=== PATIENT | female | born 1935 | race Caucasian/White ===

== ENCOUNTER 2017-01-15 15:38 | Emergency (ER) | payer OTHER ==
[~2017-01-15] VITALS: Ht 172.7 cm; Wt 85.4 kg
[~2017-01-15 15:38] MED LIST: ASPCH81X PO; CHOL1CAP74 PO; METO50TA16 PO; MULT-663 PO; NTRGSL/4 UT; OFLO0.3S OPR; PANT40TA PO; RIVA1TAB4 PO; ZOLE5INJ IV
[2017-01-15 15:41] VITALS: TEMP 36.6; Ht 172.7 cm; Wt 85.4 kg
[2017-01-15] MEDS ORDERED: SODIUM CHLORIDE 0.9% 1000ML 1,000 ML IV SCH (15:56)
--- NOTE | 2017-01-15 15:58 | EMERGENCY ROOM VISIT NOTE ---
History Report prepared by Karolina: Mor Fung Under the Supervision of: Jazmine BasilioO. First contact with patient: 15:51 Chief Complaint: HEADACHE Stated Complaint: HEADACHE- RT SIDE, SLIGHTLY DISORIENTED History of Present Illness The patient is a 81 year old female who presents to the Emergency Room with complaints of an episode of a headache occurring earlier today. She locates the headache on her right sided, and notes it lasted for 10 minutes. She does not currently have the headache. The patient reports having a history of ocular migraines, but has not had one for about 10 years. She notes having some mild nausea, and is seeing "fuzzy stuff", but denies any vomiting. She indicates that she is bothered by the light. The patient adds that she had some neck stiffness earlier but it has mostly resolved. She had cataract surgery about 2 years ago. The patient is on Xarelto from an injection acquired during a past hip surgery 4 years ago. She has had 3 hip surgeries. Source of History: patient Onset: earlier today Position: head Symptom Intensity: episode lasting 10 minutes Quality: ache Timing: other (episode) Modifying Factors (Worsening): other (light) Associated Symptoms: + nausea, + neck pain (stiffness, mostly resolved), No vomiting Review of Systems See HPI for pertinent positives & negatives. A total of 10 systems reviewed and were otherwise negative. Past Medical & Surgical Medical Problems: (1) A-fib (2) Arthritis (3) blood clots (4) Bronchitis (5) Esophageal spasm (6) Hip surgery (7) Hypertension (8) Spastic colon (9) Staph infection (10) Stomach problems (11) Ulcer (12) Urinary problem Surgical Problems: (1) History of appendectomy (2) History of cholecystectomy (3) History of colon resection (4) History of total ankle replacement Family History Diabetes mellitus FHx: gallbladder disease FHx: heart disease Hypertension Social History Smoking Status: Never Smoker Alcohol Use: none Marital Status: Housing Status: lives with significant other Current/Historical Medications Scheduled Cephalexin Monohydrate (Keflex), 500 MG PO QID Cholecalciferol (Vitamin D3 Maximum Streng), 5,000 UNITS PO WK Metoprolol Tartrate (Lopressor) (Lopressor), 25 MG PO BID Multiple Minerals W/ Vitamins (Citracal Plus), 1 TAB PO BID Nitroglycerin (Nitrostat), 0.4 MG UT PRN Pantoprazole (Protonix), 40 MG PO QAM Polyethylene Glycol-Propylene (Systane), 1 DROPS OP QID Rivaroxaban (Xarelto), 20 MG PO DAILY Sertraline (Zoloft), 50 MG PO QAM Zoledronic Acid (Reclast), 1 DOSE IV YEARLY Allergies Coded Allergies: Morphine (Verified Allergy, Unknown, ANAPHYLAXIS, 01/15/17) Penicillins (Verified Allergy, Unknown, RASH, 01/15/17) Physical Exam Vital Signs Date Time Temp Pulse Resp B/P Pulse Ox O2 Delivery O2 Flow Rate FiO2 01/15/17 19:17 50 18 128/70 98 Room Air 01/15/17 18:32 54 18 109/61 97 Room Air 01/15/17 16:32 52 18 127/73 99 Room Air 01/15/17 16:14 56 01/15/17 16:05 97 Room Air 01/15/17 15:41 36.6 64 18 155/77 95 Room Air Physical Exam GENERAL: Patient is awake alert, non-anxious appearing and comfortable. EYES: The conjunctivae are clear. The pupils are round and reactive. EARS, NOSE, MOUTH AND THROAT: The nose is without any evidence of any deformity. Mucous membranes are moist tongue is midline NECK: The neck is nontender and supple. RESPIRATORY: Normal respiratory effort is noted there is no evidence of wheezing rhonchi or rales CARDIOVASCULAR: Regular rate and rhythm noted there no murmurs rubs or gallops normal S1 normal S2 GASTROINTESTINAL: The abdomen is soft. Bowel sounds are present in all quadrants. Abdomen is nontender MUSCULOSKELETAL/EXTREMITIES: There is no evidence of gross deformity full range of motion is noted in the hips and shoulders SKIN: Trace pedal edema bilaterally. NEUROLOGIC: Patient is awake alert and oriented x3, strength is symmetric, no drift appreciated, no facial droop noted. Medical Decision & Procedures ER Provider Diagnostic Interpretation: Radiology results as stated below per my review and radiologist interpretation: HEAD CT NONCONTRAST Findings: The paranasal sinuses and mastoid air cells are clear. The calvarium and skull base are intact. The ventricles and sulci are within normal limits. There is no mass, hematoma, midline shift, or acute infarct. Mild chronic small vessel change of aging Impression: No acute intracranial abnormality. Mild chronic small vessel change Electronically signed by: Fredo Sharp M.D. 01/15/2017 4:52 PM Dictated Date/Time: 01/15/2017 4:51 PM CHEST ONE VIEW PORTABLE FINDINGS: The bones soft tissues and hemidiaphragms are normal. The cardiomediastinal silhouette is normal. The lungs are clear. The pulmonary vasculature is normal. IMPRESSION: Negative chest. Electronically signed by: Fredo Sharp M.D. 01/15/2017 4:21 PM Dictated Date/Time: 01/15/2017 4:20 PM Laboratory Results 01/15/17 16:05 Red Blood Count 4.18, Mean Corpuscular Volume 88.3, Mean Corpuscular Hemoglobin 29.2, Mean Corpuscular Hemoglobin Concent 33.1, Mean Platelet Volume 10.4, Neutrophils (%) (Auto) 51.1, Lymphocytes (%) (Auto) 32.8, Monocytes (%) (Auto) 9.5, Eosinophils (%) (Auto) 5.9, Basophils (%) (Auto) 0.5, Neutrophils # (Auto) 3.30, Lymphocytes # (Auto) 2.11, Monocytes # (Auto) 0.61, Eosinophils # (Auto) 0.38, Basophils # (Auto) 0.03 01/15/17 16:05 Test 01/15/17 16:03 01/15/17 16:05 01/15/17 17:10 Bedside Glucose 97 mg/dl (70-90) White Blood Count 6.44 K/uL (4.8-10.8) Red Blood Count 4.18 M/uL (4.2-5.4) Hemoglobin 12.2 g/dL (12.0-16.0) Hematocrit 36.9 % (37-47) Mean Corpuscular Volume 88.3 fL (80-100) Mean Corpuscular Hemoglobin 29.2 pg (25-34) Mean Corpuscular Hemoglobin Concent 33.1 g/dl (32-36) Platelet Count 246 K/uL (130-400) Mean Platelet Volume 10.4 fL (7.4-10.4) Neutrophils (%) (Auto) 51.1 % Lymphocytes (%) (Auto) 32.8 % Monocytes (%) (Auto) 9.5 % Eosinophils (%) (Auto) 5.9 % Basophils (%) (Auto) 0.5 % Neutrophils # (Auto) 3.30 K/uL (1.4-6.5) Lymphocytes # (Auto) 2.11 K/uL (1.2-3.4) Monocytes # (Auto) 0.61 K/uL (0.11-0.59) Eosinophils # (Auto) 0.38 K/uL (0-0.5) Basophils # (Auto) 0.03 K/uL (0-0.2) RDW Standard Deviation 46.9 fL (36.4-46.3) RDW Coefficient of Variation 14.5 % (11.5-14.5) Immature Granulocyte % (Auto) 0.2 % Immature Granulocyte # (Auto) 0.01 K/uL (0.00-0.02) Prothrombin Time 11.1 SECONDS (9.0-12.0) Prothromb Time International Ratio 1.0 (0.9-1.1) Activated Partial Thromboplast Time 31.0 SECONDS (21.0-31.0) Partial Thromboplastin Ratio 1.2 Anion Gap 8.0 mmol/L (3-11) Est Creatinine Clear Calc Drug Dose 52.6 ml/min Estimated GFR () 64.3 Estimated GFR (Non- 55.5 BUN/Creatinine Ratio 19.7 (10-20) Calcium Level 9.3 mg/dl (8.5-10.1) Total Bilirubin 0.2 mg/dl (0.2-1) Direct Bilirubin < 0.1 mg/dl (0-0.2) Aspartate Amino Transf (AST/SGOT) 35 U/L (15-37) Alanine Aminotransferase (ALT/SGPT) 30 U/L (12-78) Alkaline Phosphatase 89 U/L (45-117) Total Creatine Kinase 75 U/L (26-192) Creatine Kinase MB 0.8 ng/ml (0.5-3.6) Creatine Kinase MB Ratio 1.1 (0-3.0) Troponin I < 0.015 ng/ml (0-0.045) Total Protein 7.3 gm/dl (6.4-8.2) Albumin 3.5 gm/dl (3.4-5.0) Urine Color YELLOW Urine Appearance CLEAR (CLEAR) Urine pH 5.5 (4.5-7.5) Urine Specific Yale 1.020 (1.000-1.030) Urine Protein NEG (NEG) Urine Glucose (UA) NEG (NEG) Urine Ketones NEG (NEG) Urine Occult Blood NEG (NEG) Urine Nitrite NEG (NEG) Urine Bilirubin NEG (NEG) Urine Urobilinogen NEG (NEG) Urine Leukocyte Esterase MODERATE (NEG) Urine RBC 0-4 /hpf (0-4) Urine WBC >30 /hpf (0-5) Urine Epithelial Cells >30 /lpf (0-5) Urine Bacteria 1+ (NEG) Laboratory results per my review. Medications Administered Medications (Trade) Dose Ordered Sig/Vahid Route Start Time Stop Time Status Last Admin Dose Admin Sodium Chloride (Nss 1000ml) 1,000 ml @ 50 mls/hr Q20H IV 01/15/17 15:56 01/15/17 19:47 DC 01/15/17 16:31 50 MLS/HR Ceftriaxone Sodium (Rocephin Inj) 1 gm NOW STAT IV 01/15/17 18:21 01/15/17 18:22 DC 01/15/17 18:30 1 GM ECG Indication: other (headache) Rate (beats per minute): 59 Rhythm: sinus bradycardia Findings: no ectopy, other (no ST segment abnormalities) Comparison ECG Date: April 13, 2014 Change: no significant change ED Course 1550: The patient was evaluated in room B7. A complete history and physical examination were performed. 1556: Ordered NSS 1,000 ml @ 50 mls/hr IV. 1821: Ordered Rocephin Inj 1 gm IV. 1850: Upon reevaluation, the patient is doing well. I discussed the results and treatment plan with the patient. She verbalized agreement of the treatment plan. The patient was discharged home. Medical Decision Differential diagnosis: Etiologies such as migraine headache, meningitis, sinusitis, CO exposure, ICH, SAH, infection, tumor, headache, sinus thrombosis, arterial dissection, as well as others were entertained. Nursing notes reviewed. The patient is an 81-year-old female who presented to the emergency department for an evaluation of headache. The patient had a left-sided headache which was not present when she presented to the emergency department. She was treated with IV fluids in the emergency department. She presented to the emergency department specifically because she was afraid that she had a stroke. I discussed the patient's laboratory and radiographic studies with her. She was reevaluated multiple times. She was also found have possible signs of urinary tract infection on urinalysis. She was treated with antibiotics for this. She was encouraged to rest and avoid any strenuous activity. She was also given TIA precautions and encouraged to return to the emergency apartment immediately if any signs of stroke develop. The patient presented to the emergency department with her significant other who states that she is currently at her baseline and did not appear confused and her speech appears baseline as well. The patient was encouraged to follow-up with her primary care physician for further evaluation. Impression Primary Impression: Headache Additional Impression: Urinary tract infection Scribe Attestation The scribe's documentation has been prepared under my direction and personally reviewed by me in its entirety. I confirm that the note above accurately reflects all work, treatment, procedures, and medical decision making performed by me. Departure Information Dispostion Home / Self-Care Prescriptions Cephalexin Monohydrate (KEFLEX) 500 Mg Cap 500 MG PO QID, #28 CAP Prov: Zurdo Bernard, DO 01/15/17 Referrals Rina Jacobson M.D. (PCP) Patient Instructions Headache Pain, My [facility] Additional Instructions Continue using Tylenol as directed for pain. Call your family tomorrow to schedule a follow-up appointment. Return to the emergency department immediately if symptoms change worsen or the need arises. Problem Qualifiers Primary Impression: Headache Headache type: unspecified Headache chronicity pattern: acute headache Intractability: not intractable Qualified Codes: R51 - Headache Additional Impression: Urinary tract infection Urinary tract infection type: acute cystitis Hematuria presence: without hematuria Qualified Codes: N30.00 - Acute cystitis without hematuria
[2017-01-15 16:05] VITALS: O2SAT 97
[2017-01-15] MEDS ORDERED: POLYSOL4 OP (16:07)
[2017-01-15] MEDS ORDERED: SERT50TA PO (16:07)
--- NOTE | 2017-01-15 16:22 | DIAGNOSTIC IMAGING REPORT ---
CHEST ONE VIEW PORTABLE CLINICAL HISTORY: Stroke mental status change COMPARISON STUDY: 01/15/2014 FINDINGS: The bones soft tissues and hemidiaphragms are normal. The cardiomediastinal silhouette is normal. The lungs are clear. The pulmonary vasculature is normal. IMPRESSION: Negative chest. Electronically signed by: Fredo Sharp M.D. 01/15/2017 4:21 PM Dictated Date/Time: 01/15/2017 4:20 PM
[2017-01-15 16:24] LABS: BASO % 0.5 %; BASO ABS # 0.03 K/uL (0-0.2); COMPLETE YES; EOS % 5.9 %; HEMATOCRIT 36.9 % (37-47); IG% 0.2 %; LYMPH % 32.8 %; LYMPH ABS # 2.11 K/uL (1.2-3.4); MEAN CELL VOLUME 88.3 fL (80-100); MEAN CORPUSCULAR HEMOGLOBIN 29.2 pg (25-34); MEAN CORPUSCULAR HGB CONC 33.1 g/dl (32-36); MEAN PLATELET VOLUME 10.4 fL (7.4-10.4); MONO % 9.5 %; NEUT % 51.1 %; PLATELET COUNT 246 K/uL (130-400); RED BLOOD COUNT 4.18 M/uL (4.2-5.4); WHITE BLOOD COUNT 6.44 K/uL (4.8-10.8)
[2017-01-15 16:32] LABS: PARTIAL THROMBOPLASTIN RATIO 1.2; PROTHROMBIN TIME (PATIENT) 11.1 SECONDS (9.0-12.0)
[2017-01-15 16:48] LABS: ALT/SGPT 30 U/L (12-78); BLOOD UREA NITROGEN 19 mg/dl (7-18); BUN/CREATININE RATIO 19.7 (10-20); CALCIUM 9.3 mg/dl (8.5-10.1); CARBON DIOXIDE 25 mmol/L (21-32); CHLORIDE 107 mmol/L (98-107); CREATININE 0.96 mg/dl (0.60-1.20); GLUCOSE 104 mg/dl (70-99); POTASSIUM 3.9 mmol/L (3.5-5.1); SODIUM 140 mmol/L (136-145)
[2017-01-15 16:53] LABS: ALKALINE PHOSPHATASE 89 U/L (45-117); AST/SGOT 35 U/L (15-37); CKMB/CK RATIO 1.1 (0-3.0)
--- NOTE | 2017-01-15 16:53 | DIAGNOSTIC IMAGING REPORT ---
HEAD CT NONCONTRAST CT DOSE: 679.75 mGycm HISTORY: Mental status change Stroke TECHNIQUE: Multiaxial CT images of the head were performed without the use of intravenous contrast. Comparison: None. Findings: The paranasal sinuses and mastoid air cells are clear. The calvarium and skull base are intact. The ventricles and sulci are within normal limits. There is no mass, hematoma, midline shift, or acute infarct. Mild chronic small vessel change of aging Impression: No acute intracranial abnormality. Mild chronic small vessel change Electronically signed by: Fredo Sharp M.D. 01/15/2017 4:52 PM Dictated Date/Time: 01/15/2017 4:51 PM
[2017-01-15 17:30] LABS: URINE APPEARANCE CLEAR (CLEAR); URINE BILIRUBIN NEG (NEG); URINE COLOR YELLOW; URINE NITRITE NEG (NEG); URINE PH 5.5 (4.5-7.5); UROBILINOGEN NEG (NEG)
[2017-01-15 17:31] LABS: MANUAL MICROSCOPIC REQUIRED? YES; REVIEW REQ? NO
[2017-01-15 17:46] LABS: URINE BACTERIA 1+ (NEG); URINE RBC 0-4 /hpf (0-4); URINE WBC >30 /hpf (0-5)
[2017-01-15] MEDS ORDERED: CEFTRIAXONE SOD INJ 1 GM ADDVIAL IV STA (18:21)
[2017-01-15] MEDS ORDERED: CEPH500C2 PO (18:49)
[2017-01-15 19:17] VITALS: BP 128/70; PULSE 50; O2SAT 98
== END 2017-01-15 19:19 | disposition home or self-care (01) ==
LOC: C.EDB 15:39
DX: R51 Headache (principal); N30.00 Acute cystitis without hematuria; I48.91 Unspecified atrial fibrillation; M19.90 Unspecified osteoarthritis, unspecified site; I10 Essential (primary) hypertension; Z83.3 Family history of diabetes mellitus; Z82.49 Family history of ischemic heart disease and other diseases of the circulatory system; Z79.899 Other long term (current) drug therapy

== ENCOUNTER → 2017-03-28 | Outpatient (CLI) | payer OTHER ==
[~2017-03-28] MED LIST changes: -ASPCH81X PO; +CEPH500C2 PO; -OFLO0.3S OPR; +POLYSOL4 OP; +SERT50TA PO
[2017-03-28 09:50] LABS: BLOOD UREA NITROGEN 15 mg/dl (7-18); BUN/CREATININE RATIO 15.5 (10-20); CARBON DIOXIDE 25 mmol/L (21-32); CHLORIDE 110 mmol/L (98-107); CREATININE 0.99 mg/dl (0.60-1.20); GLUCOSE 85 mg/dl (70-99); SODIUM 142 mmol/L (136-145)
[2017-03-28 09:55] LABS: CALCIUM 9.5 mg/dl (8.5-10.1)
[2017-04-03 16:28] LABS: QUANTIF TB AG-NIL <0.00 IU/ML; QUANTIFERON NIL 0.13 IU/ML
== END | disposition home or self-care (01) ==
LOC: C.LAB 08:30
PROVIDERS: ATTEND Physician Assistant
DX: J84.10 Pulmonary fibrosis, unspecified (principal)

== ENCOUNTER → 2017-04-02 | Outpatient (CLI) | payer OTHER ==
[~2017-04-02] MED LIST changes: +OPTIRAY 320 IV PRN
--- NOTE | 2017-04-02 10:28 | DIAGNOSTIC IMAGING REPORT ---
CHEST CT WITH CONTRAST CT DOSE: 412.62 mGy.cm HISTORY: Dyspnea J84.10 Calcified granuloma of lung scheduled at [facility] [place] on 04/02/17 a TECHNIQUE: Multiaxial CT images of the chest were performed following the intravenous administration of contrast. COMPARISON: 01/05/2016 FINDINGS: Minimal apical parenchymal scarring. The lungs are considered clear. No evidence for noncalcified nodular pathology. Linear parenchymal scarring medial right base. No significant mediastinal or hilar adenopathy of significance. Several very small calcified granulomas unchanged. Mild fatty infiltration of liver. Prior cholecystectomy. IMPRESSION: No acute process of the chest. No change from the prior study. Electronically signed by: Fredo Sharp M.D. 04/02/2017 10:27 AM Dictated Date/Time: 04/02/2017 10:24 AM
== END | disposition home or self-care (01) ==
LOC: C.CTS 10:00
PROVIDERS: ATTEND Physician Assistant
DX: J84.10 Pulmonary fibrosis, unspecified (principal)

== ENCOUNTER → 2017-10-22 | Outpatient (CLI) | payer OTHER ==
[~2017-10-22] MED LIST changes: -CEPH500C2 PO; -OPTIRAY 320 IV PRN
--- NOTE | 2017-10-22 14:43 | DIAGNOSTIC IMAGING REPORT ---
R FEMUR 2 VIEWS ROUTINE CLINICAL HISTORY: M79.606 Leg [id number] pain COMPARISON: None. DISCUSSION: Total right hip arthroplasty. Longstem femoral prosthetic. Good contact between prosthetic and underlying bone. No evidence for acetabular protrusion. Subtle lucency about the inferior margin of the metallic femoral prosthetic. This is insufficient to indicate loosening. Slight cortical thickening medially lateral to the inferior tip of the prosthetic most likely on basis of which stress-related phenomenon. IMPRESSION: No acute process. The above report was generated using voice recognition software. It may contain grammatical, syntax or spelling errors. Electronically signed by: Fredo Sharp M.D. 10/22/2017 2:41 PM Dictated Date/Time: 10/22/2017 2:40 PM
--- NOTE | 2017-10-22 14:50 | DIAGNOSTIC IMAGING REPORT ---
RIGHT HIP 2 VIEWS HISTORY: Right leg pain. COMPARISON: None. FINDINGS: There is a right total hip arthroplasty. The hardware appears intact. No fracture or dislocation. No significant periprosthetic lucency. Soft tissues are unremarkable. IMPRESSION: 1. No fracture or dislocation within the right hip. 2. Right total arthroplasty. No evidence for hardware complication. Electronically signed by: Deniz Guillaume M.D. 10/22/2017 2:49 PM Dictated Date/Time: 10/22/2017 2:43 PM
== END | disposition home or self-care (01) ==
LOC: C.RAD1850 14:22
PROVIDERS: ATTEND Physician Assistant
DX: M79.604 Pain in right leg (principal); Z96.641 Presence of right artificial hip joint

== ENCOUNTER → 2018-02-06 | Outpatient (CLI) | payer OTHER ==
[~2018-02-06] MED LIST changes: +OPTIRAY 320 IV PRN
--- NOTE | 2018-02-06 18:04 | DIAGNOSTIC IMAGING REPORT ---
CT ANGIOGRAPHY OF THE CHEST, PULMONARY EMBOLUS PROTOCOL CLINICAL HISTORY: Dyspnea. Atrial fibrillation. Cough. Chest discomfort. COMPARISON STUDY: Chest CT April 02, 2017. TECHNIQUE: Following IV administration of 93 mL of Optiray-320, helical axial images of the chest were obtained utilizing the pulmonary embolus protocol. Maximal intensity projections and sagittal and coronal reformats were viewed on an independent 3D workstation. IV contrast was administered without complication. A dose lowering technique was utilized adhering to the principles of ALARA. CT DOSE: 525.22 mGycm FINDINGS: No pulmonary emboli are identified. There is no evidence for thoracic aortic dissection. The heart is mildly enlarged. There is no pericardial effusion. No enlarged axillary, mediastinal or hilar lymph nodes are present. Central airways are patent. There are few calcified granulomas within the lungs. Linear and groundglass opacities reflect atelectasis. There is no consolidation to suggest pneumonia. Central airways are patent. No pneumothorax or pleural effusion is noted. Bony thorax and upper abdomen are unremarkable. Gallbladder is surgically absent. IMPRESSION: 1. No pulmonary emboli identified. 2. No acute intrathoracic findings. Electronically signed by: Leandro Euceda M.D. 02/06/2018 6:03 PM Dictated Date/Time: 02/06/2018 5:51 PM
[2018-02-06 18:12] LABS: BASO % 0.3 %; BASO ABS # 0.02 K/uL (0-0.2); EOS % 3.5 %; EOS ABS # 0.26 K/uL (0-0.5); HEMATOCRIT 37.9 % (37-47); HEMOGLOBIN 12.3 g/dL (12.0-16.0); IG# 0.02 K/uL (0.00-0.02); LYMPH % 30.2 %; LYMPH ABS # 2.23 K/uL (1.2-3.4); MEAN CORPUSCULAR HEMOGLOBIN 29.2 pg (25-34); MEAN CORPUSCULAR HGB CONC 32.5 g/dl (32-36); MEAN PLATELET VOLUME 10.1 fL (7.4-10.4); MONO % 8.3 %; MONO ABS # 0.61 K/uL (0.11-0.59); NEUT % 57.4 %; NEUT ABS # 4.25 K/uL (1.4-6.5); PLATELET COUNT 242 K/uL (130-400); RED CELL DISTRIBUTION WIDTH CV 14.6 % (11.5-14.5); RED CELL DISTRIBUTION WIDTH SD 48.3 fL (36.4-46.3); WHITE BLOOD COUNT 7.39 K/uL (4.8-10.8)
[2018-02-06 18:38] LABS: ALBUMIN 3.5 gm/dl (3.4-5.0); ALT/SGPT 32 U/L (12-78); AST/SGOT 37 U/L (15-37); BLOOD UREA NITROGEN 16 mg/dl (7-18); CALCIUM 9.7 mg/dl (8.5-10.1); CARBON DIOXIDE 25 mmol/L (21-32); CREATININE 1.04 mg/dl (0.60-1.20); GLUCOSE 90 mg/dl (70-99); POTASSIUM 3.6 mmol/L (3.5-5.1); SODIUM 138 mmol/L (136-145)
[2018-02-06 18:47] LABS: ALKALINE PHOSPHATASE 92 U/L (45-117); TRANSFERRIN 296 mg/dl (200-360)
== END | disposition home or self-care (01) ==
LOC: C.CTS 16:58
PROVIDERS: ATTEND Physician Assistant
DX: R06.00 Dyspnea, unspecified (principal); I48.91 Unspecified atrial fibrillation; R05 Cough; R07.89 Other chest pain

== ENCOUNTER 2018-02-15 21:20 | Emergency (ER) | payer OTHER ==
[~2018-02-15] VITALS: Ht 172.7 cm; Wt 94.3 kg
[~2018-02-15 21:20] MED LIST changes: -OPTIRAY 320 IV PRN
[2018-02-15 21:28] VITALS: TEMP 36.5; Ht 172.7 cm; Wt 94.3 kg
[2018-02-15] MEDS ORDERED: LORA10CA2 PO (22:13)
[2018-02-15] MEDS ORDERED: FURO-85 PO (22:13)
[2018-02-15] MEDS ORDERED: PRED10TA PO (22:13)
--- NOTE | 2018-02-15 22:14 | EMERGENCY ROOM VISIT NOTE ---
History Report prepared by Karolina: Kena Regan Under the Supervision of: Dr. Abdiel Dueñas M.D. First contact with patient: 21:48 Chief Complaint: RESPIRATORY PROBLEMS Stated Complaint: AFTER NEBULIZER TREATMENT EXTREME SHAKING- HX AFIB History of Present Illness The patient is a 82 year old female who presents to the Emergency Room with complaints of an episode of shakiness just prior to arrival. The patient has a history of Sarcoidosis. She was prescribed an albuterol nebulizer treatment yesterday by her pulmonology team. The patient had her 1st dose of the treatment this evening which she became very shaky after. The patient thought she was having an allergic reaction to the albuterol. The patient has an history of anxiety and she is currently on Zoloft and prednisone. She denies any fevers, chills, cough, congestion, nausea, vomiting, diarrhea, or urinary symptoms. Source of History: patient Onset: just prior to arrival Position: other (generalized) Quality: other (shakiness) Timing: other (episode) Associated Symptoms: No fevers, No cough, No nausea, No vomiting, No diarrhea, No urinary symptoms Review of Systems See HPI for pertinent positives and negatives. A total of ten systems were reviewed and were otherwise negative. Past Medical & Surgical Medical Problems: (1) A-fib (2) Arthritis (3) blood clots (4) Bronchitis (5) Esophageal spasm (6) Hip surgery (7) Hypertension (8) Spastic colon (9) Staph infection (10) Stomach problems (11) Ulcer (12) Urinary problem Surgical Problems: (1) History of appendectomy (2) History of cholecystectomy (3) History of colon resection (4) History of total ankle replacement Family History Diabetes mellitus FHx: gallbladder disease FHx: heart disease Hypertension Social History Smoking Status: Never Smoker Alcohol Use: none Marital Status: Housing Status: lives with significant other Current/Historical Medications Scheduled Cholecalciferol (Vitamin D3 Maximum Streng), 5,000 UNITS PO WK Furosemide (Lasix), 20 MG PO 2XWK Loratadine (Claritin), 10 MG PO DAILY Metoprolol Tartrate (Lopressor) (Lopressor), 25 MG PO BID Multiple Minerals W/ Vitamins (Citracal Plus), 1 TAB PO DAILY Nitroglycerin (Nitrostat), 0.4 MG UT PRN Prednisone Tab (Prednisone), 10 MG PO DIRECTED Rivaroxaban (Xarelto), 20 MG PO DAILY Sertraline (Zoloft), 50 MG PO QAM Zoledronic Acid (Reclast), 1 DOSE IV YEARLY Allergies Coded Allergies: Morphine (Verified Allergy, Unknown, ANAPHYLAXIS, 01/15/17) Penicillins (Verified Allergy, Unknown, RASH, 01/15/17) Albuterol (Unverified Adverse Reaction, Severe, SHAKING ALL OVER, 02/15/18) Ipratropium (Unverified Adverse Reaction, Severe, SHAKING ALL OVER, 02/15/18 ) Physical Exam Vital Signs Date Time Temp Pulse Resp B/P (MAP) Pulse Ox O2 Delivery O2 Flow Rate FiO2 02/16/18 00:33 78 20 136/78 96 02/15/18 23:16 56 20 140/63 97 Room Air 02/15/18 22:30 58 02/15/18 22:29 58 20 111/57 94 Room Air 02/15/18 22:15 93 Room Air 02/15/18 21:28 36.5 79 24 151/84 93 Room Air Physical Exam GENERAL: Awake, alert, anxious-appearing, tremulous, in no distress HENT: Normocephalic, atraumatic. Oropharynx unremarkable. EYES: Normal conjunctiva. Sclera non-icteric. NECK: Supple. No nuchal rigidity. FROM. No JVD. RESPIRATORY: Clear to auscultation. CARDIAC: Regular rate, normal rhythm. Extremities warm and well perfused. Pulses equal. ABDOMEN: Soft, non-distended. No tenderness to palpation. No rebound or guarding. No masses. RECTAL: Deferred. MUSCULOSKELETAL: Chest examination reveals no tenderness. The back is symmetrical on inspection without obvious abnormality. There is no CVA tenderness to palpation. No joint edema. LOWER EXTREMITIES: Calves are equal size bilaterally and non-tender. No edema. No discoloration. NEURO: Normal sensorium. No sensory or motor deficits noted. SKIN: No rash or jaundice noted. Medical Decision & Procedures ER Provider Diagnostic Interpretation: Radiology results as stated below per my review and radiologist interpretation: CHEST ONE VIEW PORTABLE FINDINGS: Atherosclerosis of the aortic arch. Cardiac silhouette top normal in size. No focal opacity. No large effusion or pneumothorax. Degenerative changes of the thoracic spine. Chronic elevation of the right humeral head could suggest rotator cuff tear. Upper abdomen normal. IMPRESSION: 1. No acute cardiopulmonary disease. Electronically signed by: Devendra Castillo M.D. Laboratory Results 02/15/18 22:15 Red Blood Count 4.15, Mean Corpuscular Volume 89.9, Mean Corpuscular Hemoglobin 29.4, Mean Corpuscular Hemoglobin Concent 32.7, Mean Platelet Volume 9.9, Neutrophils (%) (Auto) 81.2, Lymphocytes (%) (Auto) 14.9, Monocytes (%) (Auto) 3.6, Eosinophils (%) (Auto) 0.0, Basophils (%) (Auto) 0.0, Neutrophils # (Auto) 5.34, Lymphocytes # (Auto) 0.98, Monocytes # (Auto) 0.24, Eosinophils # (Auto) 0.00, Basophils # (Auto) 0.00 02/15/18 22:15 Test 02/15/18 22:15 02/15/18 22:45 White Blood Count 6.58 K/uL (4.8-10.8) Red Blood Count 4.15 M/uL (4.2-5.4) Hemoglobin 12.2 g/dL (12.0-16.0) Hematocrit 37.3 % (37-47) Mean Corpuscular Volume 89.9 fL (80-100) Mean Corpuscular Hemoglobin 29.4 pg (25-34) Mean Corpuscular Hemoglobin Concent 32.7 g/dl (32-36) Platelet Count 240 K/uL (130-400) Mean Platelet Volume 9.9 fL (7.4-10.4) Neutrophils (%) (Auto) 81.2 % Lymphocytes (%) (Auto) 14.9 % Monocytes (%) (Auto) 3.6 % Eosinophils (%) (Auto) 0.0 % Basophils (%) (Auto) 0.0 % Neutrophils # (Auto) 5.34 K/uL (1.4-6.5) Lymphocytes # (Auto) 0.98 K/uL (1.2-3.4) Monocytes # (Auto) 0.24 K/uL (0.11-0.59) Eosinophils # (Auto) 0.00 K/uL (0-0.5) Basophils # (Auto) 0.00 K/uL (0-0.2) RDW Standard Deviation 47.3 fL (36.4-46.3) RDW Coefficient of Variation 14.4 % (11.5-14.5) Immature Granulocyte % (Auto) 0.3 % Immature Granulocyte # (Auto) 0.02 K/uL (0.00-0.02) Anion Gap 9.0 mmol/L (3-11) Est Creatinine Clear Calc Drug Dose 47.3 ml/min Estimated GFR () 54.1 Estimated GFR (Non- 46.7 BUN/Creatinine Ratio 17.7 (10-20) Calcium Level 9.4 mg/dl (8.5-10.1) Magnesium Level 1.9 mg/dl (1.8-2.4) Total Bilirubin 0.2 mg/dl (0.2-1) Direct Bilirubin < 0.1 mg/dl (0-0.2) Aspartate Amino Transf (AST/SGOT) 32 U/L (15-37) Alanine Aminotransferase (ALT/SGPT) 29 U/L (12-78) Alkaline Phosphatase 88 U/L (45-117) Troponin I < 0.015 ng/ml (0-0.045) Pro-B-Type Natriuretic Peptide 197 pg/ml (0-1800) Total Protein 7.7 gm/dl (6.4-8.2) Albumin 3.5 gm/dl (3.4-5.0) Lipase 165 U/L (73-393) Thyroid Stimulating Hormone (TSH) 1.300 uIu/ml (0.300-4.500) Venous Blood pH 7.37 (7.36-7.41) Venous Blood Partial Pressure CO2 43 mmHg (38.0-50.0) Venous Blood Partial Pressure O2 30 mmHg Venous Blood HCO3 24 mmol/L Venous Blood Oxygen Saturation < 60.0 % Venous Blood Base Excess -1.2 mEq/L Laboratory results reviewed by me ECG Per My Interpretation Indication: SOB/dyspnea Rate (beats per minute): 55 Rhythm: sinus bradycardia Findings: no acute ischemic change, other (normal axis) ED Course 2158: The patient was evaluated in room A2. A complete history and physical exam was performed. 9: I updated the patient on her test results. She is resting comfortably. 2342: I reevaluated the patient. Discussed results and discharge instructions: She verbalized understanding and agreement. The patient is ready for discharge. Medical Decision I reviewed the patient's past medical history, medications, and the nursing notes as described above. Differential diagnosis: Etiologies such as infections, reactive airway disease, pneumonia, pneumothorax , COPD, CHF, cardiac ischemia, pulmonary embolism, musculoskeletal, gastrointestinal, as well as others were entertained. The patient is an 82-year-old woman with a past medical history of sarcoidosis followed by pulmonology who presents emergency department with tremulousness after taking her new prescription for albuterol nebulizers per hpi. On arrival the patient is anxious appearing and tremulous but no acute distress, afebrile stable vital signs. Lungs clear to auscultation. EKG unremarkable no arrhythmias or evidence of ischemia. Labs unremarkable including WBC, troponin , BNP within normal limits. Chest x-ray unremarkable. Patient feeling improved during ED observation without any intervention resolution of her symptoms. Patient reports that she has a history of underlying anxiety and panic attacks. Thus, given the patient's resolution of symptoms without intervention the patient's episode is most likely related to adverse effects from her nebulized albuterol in the setting of her underlying anxiety provoking a panic attack. Thus, patient advised to attempt taking half dose of her albuterol and to follow-up with her doctor on Saturday as scheduled to discuss any additional changes if needed. Findings and plan for follow-up reviewed with patient. Patient agreeable and d/c'd per discharge instructions. Medication Reconcilliation Current Medication List: was personally reviewed by me Blood Pressure Screening Patient's blood pressure: Elevated blood pressure Blood pressure disposition: Elevated BP felt to be situational Impression Primary Impression: Tremulousness Scribe Attestation The scribe's documentation has been prepared under my direction and personally reviewed by me in its entirety. I confirm that the note above accurately reflects all work, treatment, procedures, and medical decision making performed by me. Departure Information Dispostion Home / Self-Care Referrals Rina Jacobson M.D. (PCP) Forms HOME CARE DOCUMENTATION FORM, IMPORTANT VISIT INFORMATION, WORK / SCHOOL INSTRUCTIONS Patient Instructions Albuterol Ipratropium solution for inhalation, Anxiety Body Response, My [facility] Additional Instructions Please follow up with your doctor on Saturday as scheduled for re-evaluation. Your symptoms are most likely due to adverse effects of your albuterol complicated by your underlying history of anxiety. Otherwise, your exam, EKG, chest xray, and lab results did not show signs of an emergent condition at this time. Attempt taking a half dose of your albuterol inhaler to minimize side effects. Continue your current medications as prescribed. Return to the emergency department for worsening symptoms as described in the accompanying instructions.
[2018-02-15 22:15] VITALS: O2SAT 93
[2018-02-15 22:28] LABS: HEMATOCRIT 37.3 % (37-47); HEMOGLOBIN 12.2 g/dL (12.0-16.0); IG# 0.02 K/uL (0.00-0.02); LYMPH % 14.9 %; LYMPH ABS # 0.98 K/uL (1.2-3.4); MEAN CELL VOLUME 89.9 fL (80-100); MEAN CORPUSCULAR HEMOGLOBIN 29.4 pg (25-34); MEAN CORPUSCULAR HGB CONC 32.7 g/dl (32-36); MEAN PLATELET VOLUME 9.9 fL (7.4-10.4); MONO % 3.6 %; MONO ABS # 0.24 K/uL (0.11-0.59); NEUT % 81.2 %; NEUT ABS # 5.34 K/uL (1.4-6.5); PLATELET COUNT 240 K/uL (130-400); RED CELL DISTRIBUTION WIDTH CV 14.4 % (11.5-14.5); RED CELL DISTRIBUTION WIDTH SD 47.3 fL (36.4-46.3); WHITE BLOOD COUNT 6.58 K/uL (4.8-10.8)
--- NOTE | 2018-02-15 22:37 | DIAGNOSTIC IMAGING REPORT ---
CHEST ONE VIEW PORTABLE CLINICAL HISTORY: 82 years-old Female presenting with CHEST PAIN. TECHNIQUE: Portable upright AP view of the chest was obtained. COMPARISON: 01/15/2017. FINDINGS: Atherosclerosis of the aortic arch. Cardiac silhouette top normal in size. No focal opacity. No large effusion or pneumothorax. Degenerative changes of the thoracic spine. Chronic elevation of the right humeral head could suggest rotator cuff tear. Upper abdomen normal. IMPRESSION: 1. No acute cardiopulmonary disease. Electronically signed by: Devendra Castillo M.D. 02/15/2018 10:36 PM Dictated Date/Time: 02/15/2018 10:35 PM
[2018-02-15 22:51] LABS: BLOOD UREA NITROGEN 20 mg/dl (7-18); GLUCOSE 190 mg/dl (70-99)
[2018-02-15 22:52] LABS: ALBUMIN 3.5 gm/dl (3.4-5.0); ALT/SGPT 29 U/L (12-78); AST/SGOT 32 U/L (15-37); CALCIUM 9.4 mg/dl (8.5-10.1); CARBON DIOXIDE 23 mmol/L (21-32); LIPASE 165 U/L (73-393); POTASSIUM 3.4 mmol/L (3.5-5.1); SODIUM 140 mmol/L (136-145)
[2018-02-15 23:02] LABS: ALKALINE PHOSPHATASE 88 U/L (45-117); TOTAL PROTEIN 7.7 gm/dl (6.4-8.2)
[2018-02-16 00:33] VITALS: BP 136/78; PULSE 78; O2SAT 96
== END 2018-02-16 00:35 | disposition home or self-care (01) ==
LOC: C.EDB 21:22 → C.EDA 02-16 00:35
DX: R25.1 Tremor, unspecified (principal); R00.1 Bradycardia, unspecified; I48.91 Unspecified atrial fibrillation; I10 Essential (primary) hypertension; Z79.01 Long term (current) use of anticoagulants; Z79.899 Other long term (current) drug therapy; Z88.0 Allergy status to penicillin; Z88.5 Allergy status to narcotic agent; Z88.8 Allergy status to other drugs, medicaments and biological substances

== ENCOUNTER 2018-02-20 18:24 | Emergency (ER) | payer OTHER ==
[~2018-02-20] VITALS: Ht 162.6 cm; Wt 88.0 kg
[~2018-02-20 18:24] MED LIST changes: +FURO-85 PO; +LORA10CA2 PO; -PANT40TA PO; -POLYSOL4 OP; +PRED10TA PO
[2018-02-20 18:25] VITALS: TEMP 36.9; Ht 162.6 cm; Wt 88.0 kg
[2018-02-20] MEDS ORDERED: LIDOCAINE/EPINEPH/TETRACAINE 1 EA SYR EXT STA (18:39)
[2018-02-20] MEDS ORDERED: ACETAMINOPHEN 500 MG TAB PO STA (18:41)
[2018-02-20 19:00] VITALS: O2SAT 96
[2018-02-20 19:07] LABS: BASO % 0.1 %; BASO ABS # 0.01 K/uL (0-0.2); EOS % 0.2 %; EOS ABS # 0.02 K/uL (0-0.5); HEMATOCRIT 40.4 % (37-47); HEMOGLOBIN 13.6 g/dL (12.0-16.0); IG# 0.04 K/uL (0.00-0.02); LYMPH % 14.4 %; LYMPH ABS # 1.17 K/uL (1.2-3.4); MEAN CELL VOLUME 88.6 fL (80-100); MEAN CORPUSCULAR HEMOGLOBIN 29.8 pg (25-34); MEAN CORPUSCULAR HGB CONC 33.7 g/dl (32-36); MEAN PLATELET VOLUME 9.8 fL (7.4-10.4); MONO % 2.2 %; MONO ABS # 0.18 K/uL (0.11-0.59); NEUT % 82.6 %; NEUT ABS # 6.73 K/uL (1.4-6.5); PLATELET COUNT 263 K/uL (130-400); RED CELL DISTRIBUTION WIDTH CV 14.5 % (11.5-14.5); RED CELL DISTRIBUTION WIDTH SD 47.3 fL (36.4-46.3); WHITE BLOOD COUNT 8.15 K/uL (4.8-10.8)
[2018-02-20 19:16] LABS: PTT PATIENT 25.3 SECONDS (21.0-31.0)
[2018-02-20 19:33] LABS: ALBUMIN 3.8 gm/dl (3.4-5.0); ALT/SGPT 28 U/L (12-78); AST/SGOT 32 U/L (15-37); BLOOD UREA NITROGEN 19 mg/dl (7-18); CALCIUM 9.7 mg/dl (8.5-10.1); CARBON DIOXIDE 25 mmol/L (21-32); GLUCOSE 148 mg/dl (70-99); POTASSIUM 4.1 mmol/L (3.5-5.1); SODIUM 138 mmol/L (136-145)
[2018-02-20 19:44] LABS: ALKALINE PHOSPHATASE 92 U/L (45-117); TOTAL PROTEIN 7.9 gm/dl (6.4-8.2)
--- NOTE | 2018-02-20 19:45 | DIAGNOSTIC IMAGING REPORT ---
HEAD WITHOUT CONTRAST (CT) CLINICAL HISTORY: 82 years-old Female with fall, left scalp lac. Acute laceration of the left scalp with recent fall TECHNIQUE: Multiple axial CT images of the head were obtained without contrast. A dose lowering technique was utilized adhering to the principles of ALARA. CT DOSE: 537.48 mGy.cm COMPARISON: CT head 01/15/2017. FINDINGS: No acute intracranial hemorrhage, midline shift, intracranial mass, hydrocephalus, territorial ischemia or abnormal extra-axial collection. Mild atrophy with chronic microvascular ischemic changes redemonstrated. Cerebral vascular calcifications are seen at the level of the skull base. The calvarium is intact. The paranasal sinuses, mastoid air cells, and middle ear cavities are clear. Mild soft tissue swelling about the left frontal scalp with small laceration. No opaque foreign body. IMPRESSION: 1. No acute intracranial abnormality or calvarial fracture. 2. Mild soft tissue swelling with small laceration of the left frontal scalp. The above report was generated using voice recognition software. It may contain grammatical, syntax or spelling errors. Electronically signed by: Josué Ley M.D. 02/20/2018 7:44 PM Dictated Date/Time: 02/20/2018 7:41 PM
[2018-02-20] MEDS ORDERED: METO25TA56 PO (19:59)
[2018-02-20] MEDS ORDERED: FLUT0.15 NAE (19:59)
[2018-02-20 22:20] VITALS: BP 154/86; PULSE 60; O2SAT 93
--- NOTE | 2018-02-21 00:41 | EMERGENCY ROOM VISIT NOTE ---
History Report prepared by Karolina: Nancy Seymour Under the Supervision of: Dr. Arnulfo Redmond M.D. First contact with patient: 18:26 Chief Complaint: SYNCOPE (NEAR SYNCOPE) Stated Complaint: FALL, SYNCOPE, HEAD LAC History of Present Illness The patient is a 82 year old female who presents to the Emergency Room with complaints of a head laceration due to a fall earlier today. She reports she woke up from a nap and immediately had to use the bathroom, so she tried to scurry to the bathroom but she fell about 25 feet later. She states she did not passed out, but she thinks she lost her balance as this feels similar to a " drop episode" she had in the past. The patient states he remembers the impact and ended up on the floor with a mild headache and blood on her face and head after she hit her head on the edge of a cabinet. She rates her pain as a 3/10 in severity. She was recently seen at the ED for a shaky episode after having an albuterol nebulizer treatment. She thinks her last tetanus shot was less than [address] Jacobson at [facility] is her PCP. Pt denies fevers, chills , diaphoresis, visual changes, neck pain, chest pain, breathing difficulties, nausea, vomiting, abdominal pain, back pain, melena, hematochezia, urinary symptoms, numbness, weakness, lymphadenopathy, rash, or other complaints. Source of History: patient Onset: earlier today Position: head Symptom Intensity: 3/10 in severity Quality: other (laceration due to a fall) Associated Symptoms: + headache Review of Systems See HPI for pertinent positives and negatives. A total of ten systems were reviewed and were otherwise negative. Past Medical & Surgical Medical Problems: (1) A-fib (2) Arthritis (3) blood clots (4) Bronchitis (5) Esophageal spasm (6) Hip surgery (7) Hypertension (8) Spastic colon (9) Staph infection (10) Stomach problems (11) Ulcer (12) Urinary problem Surgical Problems: (1) History of appendectomy (2) History of cholecystectomy (3) History of colon resection (4) History of total ankle replacement Family History Diabetes mellitus FHx: gallbladder disease FHx: heart disease Hypertension Social History Smoking Status: Never Smoker Alcohol Use: none Marital Status: Housing Status: lives with significant other Current/Historical Medications Scheduled Cholecalciferol (Vitamin D3 Maximum Streng), 5,000 UNITS PO WK Fluticasone Propionate (Nasal) (Flonase Allergy Relief), 2 SPRAYS ESTELA DAILY Furosemide (Lasix), 20 MG PO 2XWK Loratadine (Claritin), 10 MG PO DAILY Metoprolol Tartrate (Lopressor) (Lopressor), 1 TAB PO QAM Metoprolol Tartrate (Lopressor) (Lopressor), 1 TAB PO QPM Multiple Minerals W/ Vitamins (Citracal Plus), 1 TAB PO DAILY Nitroglycerin (Nitrostat), 0.4 MG UT PRN Prednisone Tab (Prednisone), 10 MG PO DIRECTED Rivaroxaban (Xarelto), 20 MG PO DAILY Sertraline (Zoloft), 50 MG PO QAM Zoledronic Acid (Reclast), 1 DOSE IV YEARLY Allergies Coded Allergies: Morphine (Verified Allergy, Unknown, ANAPHYLAXIS, 02/20/18) Penicillins (Verified Allergy, Unknown, RASH, 02/20/18) Albuterol (Unverified Adverse Reaction, Severe, SHAKING ALL OVER, 02/20/18) Ipratropium (Unverified Adverse Reaction, Severe, SHAKING ALL OVER, ) Physical Exam Vital Signs Date Time Temp Pulse Resp B/P (MAP) Pulse Ox O2 Delivery O2 Flow Rate FiO2 02/20/18 22:23 02/20/18 22:20 60 20 154/86 93 Room Air 02/20/18 21:30 57 18 02/20/18 21:00 56 20 02/20/18 20:30 60 13 02/20/18 20:00 58 16 02/20/18 19:00 96 Room Air 02/20/18 18:35 66 02/20/18 18:25 36.9 71 20 162/87 96 Room Air Physical Exam GENERAL: Awake, alert, anxious appearing, in no distress HEAD: Normocephalic, atraumatic. No bravo sign. No raccoon eyes. 6.5 cm laceration to the left frontal scalp behind the hairline. EYES: Normal conjunctiva. PERRL. EARS: External ears normal. Right TM normal. Left TM normal. NOSE: Atraumatic OROPHARYNX: Lips, tongue, and mucosa unremarkable. No erythema or exudate. NECK: Neck is supple and has FROM. No tracheal deviation or JVD. No posterior midline tenderness. No step offs noted. RESPIRATORY: CTA bilaterally. Breath sounds equal. No wheezes. No rhonchi. Normal respiratory effort. CARDIAC: Regular rate, normal rhythm. No murmurs. No rubs. ABDOMEN: Inspection reveals no abnormalities. Soft, non distended. No tenderness to palpation. No hernias. PELVIS: Stable to rock. SKIN: Normal. LYMPH: No adenopathy. MUSCULOSKELETAL: Upper and lower extremities are atraumatic. NEURO: GCS 15. Normal sensorium. No sensory or motor deficits noted. Medical Decision & Procedures ER Provider Diagnostic Interpretation: Radiology results as stated below per my review and radiologist interpretation: HEAD WITHOUT CONTRAST (CT) CLINICAL HISTORY: 82 years-old Female with fall, left scalp lac. Acute laceration of the left scalp with recent fall TECHNIQUE: Multiple axial CT images of the head were obtained without contrast. A dose lowering technique was utilized adhering to the principles of ALARA. CT DOSE: 537.48 mGy.cm COMPARISON: CT head 01/15/2017. FINDINGS: No acute intracranial hemorrhage, midline shift, intracranial mass, hydrocephalus, territorial ischemia or abnormal extra-axial collection. Mild atrophy with chronic microvascular ischemic changes redemonstrated. Cerebral vascular calcifications are seen at the level of the skull base. The calvarium is intact. The paranasal sinuses, mastoid air cells, and middle ear cavities are clear. Mild soft tissue swelling about the left frontal scalp with small laceration. No opaque foreign body. IMPRESSION: 1. No acute intracranial abnormality or calvarial fracture. 2. Mild soft tissue swelling with small laceration of the left frontal scalp. The above report was generated using voice recognition software. It may contain grammatical, syntax or spelling errors. Electronically signed by: Josué Ley M.D. 02/20/2018 7:44 PM Dictated Date/Time: 02/20/2018 7:41 PM Laboratory Results 02/20/18 18:56 Red Blood Count 4.56, Mean Corpuscular Volume 88.6, Mean Corpuscular Hemoglobin 29.8, Mean Corpuscular Hemoglobin Concent 33.7, Mean Platelet Volume 9.8, Neutrophils (%) (Auto) 82.6, Lymphocytes (%) (Auto) 14.4, Monocytes (%) (Auto) 2.2, Eosinophils (%) (Auto) 0.2, Basophils (%) (Auto) 0.1, Neutrophils # (Auto) 6.73, Lymphocytes # (Auto) 1.17, Monocytes # (Auto) 0.18, Eosinophils # (Auto) 0.02, Basophils # (Auto) 0.01 02/20/18 18:56 Test 02/20/18 18:56 White Blood Count 8.15 K/uL (4.8-10.8) Red Blood Count 4.56 M/uL (4.2-5.4) Hemoglobin 13.6 g/dL (12.0-16.0) Hematocrit 40.4 % (37-47) Mean Corpuscular Volume 88.6 fL (80-100) Mean Corpuscular Hemoglobin 29.8 pg (25-34) Mean Corpuscular Hemoglobin Concent 33.7 g/dl (32-36) Platelet Count 263 K/uL (130-400) Mean Platelet Volume 9.8 fL (7.4-10.4) Neutrophils (%) (Auto) 82.6 % Lymphocytes (%) (Auto) 14.4 % Monocytes (%) (Auto) 2.2 % Eosinophils (%) (Auto) 0.2 % Basophils (%) (Auto) 0.1 % Neutrophils # (Auto) 6.73 K/uL (1.4-6.5) Lymphocytes # (Auto) 1.17 K/uL (1.2-3.4) Monocytes # (Auto) 0.18 K/uL (0.11-0.59) Eosinophils # (Auto) 0.02 K/uL (0-0.5) Basophils # (Auto) 0.01 K/uL (0-0.2) RDW Standard Deviation 47.3 fL (36.4-46.3) RDW Coefficient of Variation 14.5 % (11.5-14.5) Immature Granulocyte % (Auto) 0.5 % Immature Granulocyte # (Auto) 0.04 K/uL (0.00-0.02) Prothrombin Time 10.7 SECONDS (9.0-12.0) Prothromb Time International Ratio 1.0 (0.9-1.1) Activated Partial Thromboplast Time 25.3 SECONDS (21.0-31.0) Partial Thromboplastin Ratio 1.0 Anion Gap 8.0 mmol/L (3-11) Est Creatinine Clear Calc Drug Dose 42.4 ml/min Estimated GFR () 54.1 Estimated GFR (Non- 46.7 BUN/Creatinine Ratio 17.5 (10-20) Calcium Level 9.7 mg/dl (8.5-10.1) Total Bilirubin 0.3 mg/dl (0.2-1) Direct Bilirubin < 0.1 mg/dl (0-0.2) Aspartate Amino Transf (AST/SGOT) 32 U/L (15-37) Alanine Aminotransferase (ALT/SGPT) 28 U/L (12-78) Alkaline Phosphatase 92 U/L (45-117) Troponin I < 0.015 ng/ml (0-0.045) Total Protein 7.9 gm/dl (6.4-8.2) Albumin 3.8 gm/dl (3.4-5.0) Thyroid Stimulating Hormone (TSH) 1.860 uIu/ml (0.300-4.500) Laboratory results reviewed by me Medications Administered Medications (Trade) Dose Ordered Sig/Vahid Route Start Time Stop Time Status Last Admin Dose Admin Tetracaine/ Epinephrine/ Lidocaine (L.e.t. Gel 4%/ 1:100/0.5%) 1 ea UD STAT EXT 02/20/18 18:39 02/20/18 18:41 DC 02/20/18 19:00 1 EA Acetaminophen (Tylenol Tab) 1,000 mg NOW STAT PO 02/20/18 18:41 02/20/18 18:42 DC 02/20/18 19:01 1,000 MG Procedure Location: Scalp Total length: 6.5 cm Complexity: Simple Verbal consent was obtained after the risks and benefits were explained, including but not limited to bleeding, scarring, infection, pain, and bone/ nerve damage. At this time, the risks of the procedure are less than the risks of NOT performing the procedure. A time out was taken and the correct patient and site identified. The scalp was prepped with betadine. The target area was anesthetized with let gel. Copious irrigation was performed using saline. The skin was re-prepped with betadine, the hair cleared from the wound, and a sterile field set. The wound was explored for foreign bodies and none found. Debridement was not performed. The wound edges were approximated using 7 surgical stevo in the standard fashion. Hemostasis and excellent approximation was achieved. Antibacterial ointment and a sterile dressing applied. Detailed wound care instructions and signs and symptoms of infection reviewed with the patient. No complications and the patient tolerated the procedure well. ECG Per My Interpretation Indication: other (near syncopal episode) Rate (beats per minute): 61 Findings: Q waves (septal), no acute ischemic change, no ectopy Comparison ECG Date: 02/15/2018 and 04/13/2014 Change: When compared to 02/15/2018, the Q wave is new but when compared to 04/13/2014, the Q wave was present. ED Course 1829: The patient was evaluated in room C9. A complete history and physical exam was performed. 1838: Ordered Tetracaine/Epinephrine/Lidocaine 1 ea EXT 1840: Ordered Tylenol Tab 1000 mg PO 2148: I reevaluated the patient. Discussed results and discharge instructions: She verbalized understanding and agreement. The patient is ready for discharge. Medical Decision Prior records/ancillary studies reviewed. Triage Nursing notes reviewed and agree them. The patient's history was concerning for traumatic head injury and a fall. The patient does not give any historical points to suggest syncope or near syncope. Differential diagnosis: Etiologies such as contusion, fracture, subdural hematoma, concussion, epidural hematoma, intraparenchymal hemorrhage, electrolyte abnormality, cardiac sources , dehydration, syncope as well as other etiologies were entertained. Physical examination findings: As above. Scalp laceration. ER treatment provided: P.o. Tylenol Laceration repair On reassessment the patient felt better. Diagnostics interpreted by me: ECG: Normal sinus. Q wave noted. Most previous ECG did not reveal this. This has been present on prior EKG. The labs revealed an unremarkable CBC and chemistry panel. Troponin negative. No suggestion of recent cardiac event. Imaging studies: CT scan as above It appears the patient has a suffered an accidental fall and has a scalp laceration with a very minor concussion. The patient had an unremarkable workup regarding her blood chemistries. She notes that she has an echocardiogram pending for tomorrow for outpatient testing. I encouraged her to continue with this appointment. Head injury precautions were given. I reviewed this with the patient and her . It sounds like the patient may have lost her balance and she was hurrying to the bathroom after getting up quickly. By the evaluation outlined above emergent etiologies such as fracture, subdural hematoma, epidural hematoma, intraparenchymal hemorrhage, electrolyte abnormality as well as others were deemed relatively unlikely. The patient and were informed about the findings as listed above. All questions were answered and they were pleased with the treatment. Return instructions were outlined and the patient was discharged in stable condition. Referral: The patient was referred back to her primary care physician for a recheck of the current condition and to the ER for staple removal. Medication Reconcilliation Current Medication List: was personally reviewed by me Blood Pressure Screening Patient's blood pressure: Elevated blood pressure Blood pressure disposition: Elevated BP felt to be situational Impression Primary Impression: Scalp laceration Additional Impressions: Fall Concussion Scribe Attestation The scribe's documentation has been prepared under my direction and personally reviewed by me in its entirety. I confirm that the note above accurately reflects all work, treatment, procedures, and medical decision making performed by me. Departure Information Dispostion Home / Self-Care Referrals Rina Jacobson M.D. (PCP) Forms HOME CARE DOCUMENTATION FORM, IMPORTANT VISIT INFORMATION Patient Instructions My [facility] Additional Instructions WOUND CARE INSTRUCTIONS: Bacitracin to wounds once daily. Use a gauze dressing for 2 days. Change the dressings once a day. Tylenol as needed for pain. Allow your wounds to air dry several hours per day when you are resting, but it is a good idea to keep them covered while sleeping to prevent irritation and the sheets sticking to the wound. Apply direct pressure for any bleeding. Return to the ER immediately for spreading redness, fevers, pus-like drainage, severe pain, or as needed. Return to the ER in 7 days for suture/staple removal, or sooner as needed. CONCUSSION DISCHARGE INSTRUCTIONS: What is a concussion? A concussion is a disturbance in the function of the brain caused by a direct or indirect force to the head. It results in a variety of symptoms like: headache, balance problems, nausea, vomiting, vision problems, hearing problems/ringing, drowsiness, irritability, and/or difficulty concentrating or remembering. A concussion may, or may not involve memory problems or loss of consciousness. Concussion instructions: Stop and stay away from ALL physical activity until you are symptom free from: Headaches Balance problems Feeling "dinged" Poor concentration Drowsy Fatigued Rest and avoid strenuous activities for the next few days. Get 8-10 hours of sleep per night. Limit activities that involve significant concentration and attention during this time to speed your recovery. This includes working on the computer or heavy reading. Your brain needs to rest. Eat right and eat often. Now is the time to feed your brain. Well balanced diets that avoid high sugar foods, sodas, caffeine, etc. are better for your brain. Tylenol(acetaminophen) may be used for headaches. Use 1000mg every six hours as needed. Avoid using more than 4000mg in a 24 hour period. Avoid anti-inflammatories such as aspirin, ibuprofen, Alleve, naprosyn, Motrin, or Advil as these can interfere with blood clotting and lead to bleeding within the brain after a traumatic injury. FOLLOW UP INSTRUCTIONS: Follow-up with your primary care physician in 2 to 3 days for a recheck of your current condition. POST CONCUSSIVE SYNDROME: Occasionally patients can experience a postconcussive syndrome which includes prolonged headaches and memory difficulties. This may occur over the next several days, weeks or rarely, even months. It is important to have a primary care physician follow-up in order to help if the situation develops. Problems could arise over the next 24 to 48 hours. You should not be left alone and MUST go to the hospital immediately if you: -Have a headache that suddenly gets worse. -Are very drowsy or cannot be woken up from sleep. -Can't recognize people or places. -Have repeated vomiting. -Behave unusually, seemed confused, or start acting irritable. -Have a seizure (arms and legs start jerking uncontrollably). -Have weak or numb arms or legs. -Are unsteady on your feet -Experience slurred speech or difficulty speaking. Problem Qualifiers
== END 2018-02-20 22:24 | disposition home or self-care (01) ==
LOC: EDBD 18:24 → C.EDC 18:25
DX: S01.01XA Laceration without foreign body of scalp, initial encounter (principal); S06.0X0A Concussion without loss of consciousness, initial encounter; W19.XXXA Unspecified fall, initial encounter; I48.91 Unspecified atrial fibrillation; M19.90 Unspecified osteoarthritis, unspecified site; I10 Essential (primary) hypertension; Z88.5 Allergy status to narcotic agent; Z88.0 Allergy status to penicillin

== ENCOUNTER 2018-02-27 11:30 | Emergency (ER) | payer OTHER ==
[~2018-02-27] VITALS: Ht 172.7 cm; Wt 93.0 kg
[~2018-02-27 11:30] MED LIST changes: +FLUT0.15 NAE; +METO25TA56 PO
[2018-02-27 11:31] VITALS: TEMP 36.6; Ht 172.7 cm; Wt 93.0 kg
--- NOTE | 2018-02-27 12:14 | DIAGNOSTIC IMAGING REPORT ---
HEAD WITHOUT CONTRAST (CT) CLINICAL HISTORY: 82 years-old Female presenting with Dizziness, MARIE - 1 wk s/p CHI from fall. TECHNIQUE: Multidetector CT imaging of the head was performed without the use of intravenous contrast. IV contrast: None. A dose lowering technique was used consistent with the principles of ALARA (as low as reasonably achievable). COMPARISON: 02/20/2018. CT DOSE (mGy.cm): The estimated cumulative dose is 537.48 mGy.cm. FINDINGS: [place] [facility] topogram: Unremarkable. Ventricles and sulci normal in size. Periventricular and subcortical white matter hypoattenuation, nonspecific but likely indicative of chronic small vessel ischemic change. No mass effect or midline shift. No hemorrhage or acute territorial infarct. No extra-axial fluid collection. Paranasal sinuses and mastoid air cells clear. Calvarium intact. Minimal residual soft tissue irregularity at the left frontal scalp from prior laceration and contusion. IMPRESSION: 1. Chronic small vessel ischemic change. No acute intracranial abnormality. 2. Minimal residual soft tissue abnormality at the left frontal scalp at the site of recent injury. Electronically signed by: Devendra Castillo M.D. 02/27/2018 12:13 PM Dictated Date/Time: 02/27/2018 12:11 PM
[2018-02-27] MEDS ORDERED: METO25TA56 PO (12:17)
--- NOTE | 2018-02-27 12:26 | EMERGENCY ROOM VISIT NOTE ---
ED Visit Note First contact with patient: 11:36 I have seen and examined this patient with Tanner Tapia and generally agree with the treatment plan as discussed. Problem List Medical Problems: (1) A-fib Status: Chronic (2) Arthritis Status: Chronic (3) blood clots Status: Resolved (4) Bronchitis Status: Resolved (5) Esophageal spasm Status: Chronic (6) Hip surgery Status: Resolved (7) Hypertension Status: Chronic (8) Spastic colon Status: Chronic (9) Staph infection Status: Resolved (10) Stomach problems Status: Chronic (11) Ulcer Status: Resolved (12) Urinary problem Status: Chronic Surgical Problems: (1) History of appendectomy Status: Resolved (2) History of cholecystectomy Status: Resolved (3) History of colon resection Status: Resolved (4) History of total ankle replacement Status: Resolved Current/Historical Medications Scheduled Cholecalciferol (Vitamin D3 Maximum Streng), 5,000 UNITS PO WK Fluticasone Propionate (Nasal) (Flonase Allergy Relief), 2 SPRAYS ESTELA DAILY Furosemide (Lasix), 20 MG PO 3XWK Loratadine (Claritin), 10 MG PO DAILY Metoprolol Tartrate (Lopressor) (Lopressor), 25 MG PO BID Nitroglycerin (Nitrostat), 0.4 MG UT PRN Prednisone Tab (Prednisone), 10 MG PO DIRECTED Rivaroxaban (Xarelto), 20 MG PO DAILY Sertraline (Zoloft), 25 MG PO QAM Allergies Coded Allergies: Morphine (Verified Allergy, Unknown, ANAPHYLAXIS, 02/27/18) Penicillins (Verified Allergy, Unknown, RASH, 02/27/18) Albuterol (Unverified Adverse Reaction, Severe, SHAKING ALL OVER, 02/27/18) Ipratropium (Unverified Adverse Reaction, Severe, SHAKING ALL OVER, ) Vital Signs Date Time Temp Pulse Resp B/P (MAP) Pulse Ox O2 Delivery O2 Flow Rate FiO2 02/27/18 11:31 36.6 84 18 125/76 94 Room Air Departure Information Referrals Rina Jacobson M.D. (PCP) Patient Instructions My [facility]
[2018-02-27 12:35] VITALS: BP 120/72; PULSE 78; O2SAT 96
--- NOTE | 2018-02-27 15:45 | EMERGENCY ROOM VISIT NOTE ---
History First contact with patient: 11:36 Chief Complaint: SUTURE/STAPLE REMOVAL Stated Complaint: STAPLE REMOVAL Nursing Triage Summary: PT presents to ED for staple removal. PT fell and received 7 stevo to her left side (parietal) of her head. Wound is well approximated. No bleeding or drainage noted. PT complaining of "I feel woozy this am". History of Present Illness The patient is a 82 year old female who presents to the Emergency Room for staple removal from a scalp laceration that she reports was repaired 1 week ago. The patient reports that she has persistent and mildly worsening "wooziness and headache". The patient denies any other recent strenuous activities. The patient has not followed up with her PCP regarding her injuries , and rates her overall discomfort a 4 out of 10. Review of Systems 10 system review was performed and was negative except for pertinent positives and negatives as indicated in history of present illness Past Medical/Surgical History Medical Problems: (1) A-fib (2) Arthritis (3) blood clots (4) Bronchitis (5) Esophageal spasm (6) Hip surgery (7) Hypertension (8) Spastic colon (9) Staph infection (10) Stomach problems (11) Ulcer (12) Urinary problem Surgical Problems: (1) History of appendectomy (2) History of cholecystectomy (3) History of colon resection (4) History of total ankle replacement Family History Diabetes mellitus FHx: gallbladder disease FHx: heart disease Hypertension Social History Smoking Status: Never Smoker Alcohol Use: none Marital Status: Housing Status: lives with significant other Current/Historical Medications Scheduled Cholecalciferol (Vitamin D3 Maximum Streng), 5,000 UNITS PO WK Fluticasone Propionate (Nasal) (Flonase Allergy Relief), 2 SPRAYS ESTELA DAILY Furosemide (Lasix), 20 MG PO 3XWK Loratadine (Claritin), 10 MG PO DAILY Metoprolol Tartrate (Lopressor) (Lopressor), 25 MG PO BID Nitroglycerin (Nitrostat), 0.4 MG UT PRN Prednisone Tab (Prednisone), 10 MG PO DIRECTED Rivaroxaban (Xarelto), 20 MG PO DAILY Sertraline (Zoloft), 25 MG PO QAM Physical Exam Vital Signs Date Time Temp Pulse Resp B/P (MAP) Pulse Ox O2 Delivery O2 Flow Rate FiO2 02/27/18 12:35 78 18 96 5/17/18 11:31 36.6 84 18 125/76 94 Room Air Physical Exam CONSTITUTIONAL: Healthy and well nourished. Alert and oriented X 3 with positive affect. GCS 15. HEENT: Examination of the left parietal shows a well-healed laceration without surrounding erythema, fluctuance, diastases or drainage.. Pupils equal, round and reactive. NECK: Full active range of motion without discomfort. RESPIRATORY: Clear to auscultation bilaterally with no wheezing, crackles, rhonchi or stridor. CARDIOVASCULAR: Regular rate and rhythm with no murmurs, rubs or gallops. GASTROINTESTINAL: Bowel sounds present in all quadrants. MUSCULOSKELETAL: Full range of motion of all joints without discomfort. INTEGUMENTARY: No rash or other significant dermatologic conditions noted. NEUROLOGIC: No focal neurologic deficits noted. Medical Decision & Procedures ER Provider Diagnostic Interpretation: Noncontrast CT of the head does not show any acute fracture, intracranial bleed , mass-effect or midline shift. Radiologist report is as follows: HEAD WITHOUT CONTRAST (CT) CLINICAL HISTORY: 82 years-old Female presenting with Dizziness, MARIE - 1 wk s/p CHI from fall. TECHNIQUE: Multidetector CT imaging of the head was performed without the use of intravenous contrast. IV contrast: None. A dose lowering technique was used consistent with the principles of ALARA (as low as reasonably achievable). COMPARISON: 02/20/2018. CT DOSE (mGy.cm): The estimated cumulative dose is 537.48 mGy.cm. FINDINGS: Sales Product Specialist topogram: Unremarkable. Ventricles and sulci normal in size. Periventricular and subcortical white matter hypoattenuation, nonspecific but likely indicative of chronic small vessel ischemic change. No mass effect or midline shift. No hemorrhage or acute territorial infarct. No extra-axial fluid collection. Paranasal sinuses and mastoid air cells clear. Calvarium intact. Minimal residual soft tissue irregularity at the left frontal scalp from prior laceration and contusion. IMPRESSION: 1. Chronic small vessel ischemic change. No acute intracranial abnormality. 2. Minimal residual soft tissue abnormality at the left frontal scalp at the site of recent injury. ED Course Patient history and physical exam were performed. Nurse's notes were reviewed. Vital signs were reviewed and were normal. Stevo were removed without any complications. Because the patient's concussion symptoms are worsening, I did suggest repeating a head CT. The patient was in agreement. Noncontrast CT of the head was normal. The patient was also examined by Dr. Painter, ED attending physician, who agrees with repeat CT scanning. The patient was instructed to limit her activities until symptoms improve. I also suggested follow-up with her PCP for further concussion management. She was instructed to return to the emergency department for any progressively worsening symptoms. The patient was happy with plan of care, voiced understanding of all discharge instructions, refused any analgesics, and denied any significant discomfort. Medical Decision Medication Reconcilliation Current Medication List: was personally reviewed by me Blood Pressure Screening Patient's blood pressure: Normal blood pressure Impression Primary Impression: Concussion Additional Impression: Encounter for removal of stevo Departure Information Referrals Rina Jacobson M.D. (PCP) Patient Instructions My [facility] Problem Qualifiers Primary Impression: Concussion Encounter type: subsequent encounter Loss of consciousness presence/duration : without LOC Qualified Codes: S06.0X0D - Concussion without loss of consciousness, subsequent encounter
== END 2018-02-27 12:35 | disposition home or self-care (01) ==
LOC: C.EDB 11:31 → C.EDD 12:35
DX: S06.0X0D Concussion without loss of consciousness, subsequent encounter (principal); S01.01XD Laceration without foreign body of scalp, subsequent encounter; W19.XXXD Unspecified fall, subsequent encounter; I48.91 Unspecified atrial fibrillation; I10 Essential (primary) hypertension; Z86.718 Personal history of other venous thrombosis and embolism; Z82.49 Family history of ischemic heart disease and other diseases of the circulatory system; Z79.01 Long term (current) use of anticoagulants; Z79.52 Long term (current) use of systemic steroids; Z79.899 Other long term (current) drug therapy; Z88.0 Allergy status to penicillin; Z88.5 Allergy status to narcotic agent; Z88.8 Allergy status to other drugs, medicaments and biological substances

== ENCOUNTER 2020-04-14 19:26 | Inpatient (IN) ==
--- NOTE | 2020-04-14 19:38 | Emergency Department Note ---
Impression & Plan Hypoxia, Cough, Fever ED Provider Note NAME: KASSIE LAND AGE: 84 SEX: F : 1935 ARRIVES VIA: Ambulance INFORMANT: Patient, ED PROVIDER(S): Michael Moe MD Chief Complaint: Fever, chest pain, cough HPI: Patient does present with the above symptoms. The patient states that she noticed some fever today. The patient does have a known history of lung disease for which she does wear oxygen at nighttime. The patient has complained of productive cough. The patient was concerned with the possibility of COVID as the patient did have a temperature of 39 at home. The patient denies any issues with urination or having bowel movements. The patient denies any abdominal pain. Patient does have some associated chest pain shortness of breath. The patient is mildly anxious about the possibility of coronavirus. Patient denies any recent travel. 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 The patient does have a known history of atrial flutter on Xarelto. Patient states that she believes her symptoms have gotten progressively worse. No leg swelling. ROS: See HPI for pertinent positives and negatives. A total of 10 systems were reviewed and otherwise negative. Past medical history: See below Surgical history: See below Social history: See below Physical Exam: GENERAL: Anxious in appearance, nasal cannula in place, wearing glasses and a mask. EYE EXAM: Normal conjunctiva. PERRL, no anisocoria and EOM's grossly intact w/o pain. NECK: Supple, no nuchal rigidity, no adenopathy, non-tender. No signs of meningismus. Non-stridulous. LUNGS: Clear to auscultation. Normal chest wall mechanics. HEART: NSR, no MRG. ABDOMEN: Abdomen soft, non-tender, normo-active bowel sounds, no masses, no rebound or guarding. BACK: No CVA TTP. SKIN: No rashes and no bruising. UPPER EXTREMITIES: Upper extremities are grossly normal. LOWER EXTREMITIES: Grossly normal, no edema. NEURO EXAM: A&O x3, cranial nerves II-XII grossly intact, normal speech, moves all 4 extremities on command w/o issue. Differential diagnoses: Viral syndrome, otitis, pharyngitis, pneumonia, influenza, meningitis, urinary tract infection, sepsis, bacteremia, as well as other pathologies. Course: Patient was seen and evaluated the bedside. Full history physical exam was performed. EKG: Indication: Fever chest pain Imaging Studies: 1 view chest x-ray Indication: Chest pain Possible pulmonary edema. No obvious consolidation or pneumothorax. Cardiac monitoring: An order was placed for continuous cardiac monitoring. The monitor shows a rate of 93 with atrial flutter rhythm. MDM: Patient was seen due to concern for shortness of breath oxygen use and fever. Blood work was obtained along with a chest x-ray and a cover test was also performed. Patient is a mild white count of 11 normal H&H. Patient's kidney function is fairly unremarkable. The patient was requiring supplemental oxygen chest x-ray may show some mild pulmonary edema. She was only given a small amount of fluids. The patient was also given antipyretics as well as empiric antibiotics given her lung history. COVID test was ordered and was negative. I did speak the on-call hospitalist and the patient was admitted to Dr. Diehl. EKG shows atrial flutter and the patient is a known history of this and is on anti coagulant medication. 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 Hyperlipidemia Leg pain Myalgia and myositis Nocturnal hypoxemia Nonspecific abnormal findings on radiological and examination of intrathoracic organs Osteoporosis Polymyalgia rheumatica Sarcoidosis Shortness of breath Sleep apnea Sleep disturbances Snoring Ulcer Varicella zoster Vitamin D deficiency Surgical History History of hip surgery Family History Mother Diabetes Heart disease Unknown Diabetes Hypertension Stroke syndrome Acute myocardial infarction Heart disease Father Hypertension Stroke syndrome Brother Acute myocardial infarction Heart disease Other No pertinent family history Social History Feels Safe at Home: Yes Smoking Status: Never smoker Allergies Allergies Allergy/AdvReac Type Severity Reaction Status Date / Time morphine Allergy Unknown ANAPHYLAXIS Verified 03/23/20 10:27 albuterol AdvReac Severe SHAKING Verified 03/23/20 10:27 ALL OVER ipratropium AdvReac Severe SHAKING Verified 03/23/20 10:27 ALL OVER Home Meds Home Medications Medication Instructions Recorded Confirmed loratadine 10 mg PO DAILY 09/23/18 04/14/20 nitroglycerin 0.4 mg sublingual 0.4 mg SL DIRECTED PRN #30 tab 05/04/19 04/14/20 tablet albuterol sulfate 90 mcg/actuation 2 puffs INHALATION Q4H PRN #2 gm 06/03/19 04/14/20 aerosol inhaler fluticasone propionate 50 2 sprays INTRANASAL DAILY gm 06/03/19 04/14/20 mcg/actuation nasal spray,suspension rivaroxaban 20 mg tablet 20 mg PO DAILY 06/03/19 04/14/20 omeprazole 20 mg capsule,delayed 20 mg PO DAILY PRN 09/25/19 04/14/20 release budesonide [Pulmicort Flexhaler] 2 inh INHALATION BID 04/14/20 04/14/20 furosemide [Lasix] 20 mg PO 2XWK 04/14/20 04/14/20 levalbuterol tartrate [Xopenex HFA] 1 puff INHALATION Q6H PRN 04/14/20 04/14/20 levothyroxine 50 mcg PO DAILY 04/14/20 04/14/20 metoprolol tartrate 25 mg PO BID 04/14/20 04/14/20 prednisone 5 mg PO DAILY 04/14/20 04/14/20 sertraline 50 mg PO DAILY 04/14/20 04/14/20 Previous Rx's Medication Instructions Recorded azelastine 137 mcg (0.1 %) nasal 2 spray INTNAS DAILY #30 ml 03/17/20 spray aerosol Results & Data (ED) Vital Signs Vital Signs - 24 hr 04/14/20 19:30 04/14/20 19:41 04/14/20 19:46 Temperature 38.2 C H Temperature Source Oral Pulse Rate 88 88 88 Pulse Rate [Right Finger] Pulse Rate from SpO2 Sensor 88 Pulse Rhythm Regular Pulse Strength Normal Respiratory Rate 20 22 20 Respiratory Effort / Characteristics Non-Labored Spontaneous Respiratory Depth Normal Respiratory Pattern Regular Blood Pressure 139/73 139/73 Blood Pressure Mean 95 91 Blood Pressure Position Lying Pulse Oximetry 97 96 97 Oxygen Delivery Method Nasal Cannula Nasal Cannula Oxygen Flow Rate 2 2 Sepsis Recent Fever Within 48 Hours Yes Sepsis New/Unexplained Change in Mental Status No Sepsis Action Taken by Nursing No Action Required 04/14/20 20:00 04/14/20 20:30 04/14/20 20:31 Temperature Temperature Source Pulse Rate 89 89 87 Pulse Rate [Right Finger] Pulse Rate from SpO2 Sensor 88 86 87 Pulse Rhythm Pulse Strength Respiratory Rate 20 21 24 Respiratory Effort / Characteristics Respiratory Depth Respiratory Pattern Blood Pressure 130/72 141/67 H Blood Pressure Mean 84 85 Blood Pressure Position Pulse Oximetry 92 93 94 Oxygen Delivery Method Oxygen Flow Rate Sepsis Recent Fever Within 48 Hours Sepsis New/Unexplained Change in Mental Status Sepsis Action Taken by Nursing 04/14/20 20:54 04/14/20 21:01 04/14/20 21:30 Temperature Temperature Source Pulse Rate 93 H 104 H 102 H Pulse Rate [Right Finger] Pulse Rate from SpO2 Sensor 95 H 103 H 102 H Pulse Rhythm Pulse Strength Respiratory Rate 23 24 24 Respiratory Effort / Characteristics Respiratory Depth Respiratory Pattern Blood Pressure 149/75 H 141/75 H 133/63 Blood Pressure Mean 105 94 89 Blood Pressure Position Pulse Oximetry 91 93 92 Oxygen Delivery Method Oxygen Flow Rate Sepsis Recent Fever Within 48 Hours Sepsis New/Unexplained Change in Mental Status Sepsis Action Taken by Nursing 04/14/20 22:00 04/14/20 22:30 04/14/20 22:44 Temperature Temperature Source Pulse Rate 101 H 98 H Pulse Rate [Right Finger] 90 Pulse Rate from SpO2 Sensor 101 H 97 H Pulse Rhythm Pulse Strength Respiratory Rate 24 20 16 Respiratory Effort / Characteristics Non-Labored Respiratory Depth Respiratory Pattern Blood Pressure 120/62 127/65 Blood Pressure Mean 75 73 Blood Pressure Position Pulse Oximetry 90 91 92 Oxygen Delivery Method Room Air Oxygen Flow Rate Sepsis Recent Fever Within 48 Hours Sepsis New/Unexplained Change in Mental Status Sepsis Action Taken by Nursing 04/14/20 23:00 04/14/20 23:30 Temperature Temperature Source Pulse Rate 106 H 99 H Pulse Rate [Right Finger] Pulse Rate from SpO2 Sensor 106 H 100 H Pulse Rhythm Pulse Strength Respiratory Rate 20 24 Respiratory Effort / Characteristics Respiratory Depth Respiratory Pattern Blood Pressure 127/62 96/54 L Blood Pressure Mean 85 75 Blood Pressure Position Pulse Oximetry 90 90 Oxygen Delivery Method Oxygen Flow Rate Sepsis Recent Fever Within 48 Hours Sepsis New/Unexplained Change in Mental Status Sepsis Action Taken by Care Home Medications Current Medication List: was personally reviewed by al Laboratory Data Attestation: I reviewed the patient's lab results. Result diagrams: 04/14/20 19:50 04/14/20 19:50 Lab Results 04/14/20 04/14/20 04/14/20 Range/Units 19:50 19:50 19:50 WBC 11.48 H (4.8-10.8) K/uL RBC 4.28 (4.2-5.4) M/uL Hgb 12.1 (12.0-16.0) g/dL Hct 38.6 (37-47) % MCV 90.2 (80-100) fL MCH 28.3 (25-34) pg MCHC 31.3 L (32-36) g/dL RDW Std Deviation 50.4 H (36.4-46.3) fL RDW Coeff of Vonda 15.3 H (11.5-14.5) % Plt Count 250 (130-400) K/uL MPV 9.9 (7.4-10.4) fL Immature Gran % (Auto) 0.3 % Neut % (Auto) 89.4 % Lymph % (Auto) 6.4 % [place] % (Auto) 3.1 % Eos % (Auto) 0.7 % Baso % (Auto) 0.1 % Neut # (Auto) 10.26 H (1.4-6.5) K/uL Lymph # (Auto) 0.74 L (1.2-3.4) K/uL [place] # (Auto) 0.36 (0.11-0.59) K/uL Eos # (Auto) 0.08 (0-0.5) K/uL Baso # (Auto) 0.01 (0-0.2) K/uL Immature Gran # (Auto) 0.03 H (0.00-0.02) K/uL PT 11.0 (9.0-12.0) Seconds INR 1.0 (0.9-1.1) APTT 28.9 (21.0-31.0) Seconds PTT Ratio 1.0 ABG pH (7.35-7.45) ABG pCO2 (35-46) mmHg ABG pO2 (80-95) mmHg ABG HCO3 (19-24) mmol/L ABG O2 Saturation (90-95) % ABG Base Excess (-9-1.8) mEq/L Dillon Test (Pos) Barometric Pressure mm/Hg Oxygen Given Sodium 137 (136-145) mmol/L Potassium 3.7 (3.5-5.1) mmol/L Chloride 106 (98-107) mmol/L Carbon Dioxide 24 (21-32) mmol/L Anion Gap 7.0 (3-11) BUN 15 (7-18) mg/dl Creatinine 1.03 (0.6-1.2) mg/dl Est Cr Clr Drug Dosing 49.0 ml/min Est GFR ( Amer) 57.8 Est GFR (Non-Af Amer) 49.9 BUN/Creatinine Ratio 14.1 (10-20) Glucose 105 H (70-99) mg/dl Lactate (0.4-2.0) mmol/L Calcium 10.1 (8.5-10.1) mg/dl Magnesium 1.8 (1.8-2.4) mg/dl Total Bilirubin 0.3 (0.2-1) mg/dl AST 22 (15-37) U/L ALT 22 (12-78) U/L Alkaline Phosphatase 82 (45-117) U/L Total Protein 7.6 (6.4-8.2) gm/dl Albumin 3.2 L (3.4-5.0) gm/dl Globulin 4.4 H (2.5-4.0) gm/dl Albumin/Globulin Ratio 0.7 L (0.9-2) Urine Color Urine Appearance (Clear) Urine pH (4.5-7.5) Ur Specific Topmost (1.000-1.030) Urine Protein (Negative) Urine Glucose (UA) (Negative) Urine Ketones (Negative) Urine Blood (Negative) Urine Nitrite (Negative) Urine Bilirubin (Negative) Urine Urobilinogen (Negative) Ur Leukocyte Esterase (Negative) COVID-19 PCR (Negative) SARS-CoV-2 RNA (RT-PCR) 04/14/20 04/14/20 04/14/20 Range/Units 20:35 20:43 20:43 WBC (4.8-10.8) K/uL RBC (4.2-5.4) M/uL Hgb (12.0-16.0) g/dL Hct (37-47) % MCV (80-100) fL MCH (25-34) pg MCHC (32-36) g/dL RDW Std Deviation (36.4-46.3) fL RDW Coeff of Vonda (11.5-14.5) % Plt Count (130-400) K/uL MPV (7.4-10.4) fL Immature Gran % (Auto) % Neut % (Auto) % Lymph % (Auto) % [place] % (Auto) % Eos % (Auto) % Baso % (Auto) % Neut # (Auto) (1.4-6.5) K/uL Lymph # (Auto) (1.2-3.4) K/uL [place] # (Auto) (0.11-0.59) K/uL Eos # (Auto) (0-0.5) K/uL Baso # (Auto) (0-0.2) K/uL Immature Gran # (Auto) (0.00-0.02) K/uL PT (9.0-12.0) Seconds INR (0.9-1.1) APTT (21.0-31.0) Seconds PTT Ratio ABG pH (7.35-7.45) ABG pCO2 (35-46) mmHg ABG pO2 (80-95) mmHg ABG HCO3 (19-24) mmol/L ABG O2 Saturation (90-95) % ABG Base Excess (-9-1.8) mEq/L Dillon Test (Pos) Barometric Pressure mm/Hg Oxygen Given Sodium (136-145) mmol/L Potassium (3.5-5.1) mmol/L Chloride (98-107) mmol/L Carbon Dioxide (21-32) mmol/L Anion Gap (3-11) BUN (7-18) mg/dl Creatinine (0.6-1.2) mg/dl Est Cr Clr Drug Dosing ml/min Est GFR ( Amer) Est GFR (Non-Af Amer) BUN/Creatinine Ratio (10-20) Glucose (70-99) mg/dl Lactate 1.5 (0.4-2.0) mmol/L Calcium (8.5-10.1) mg/dl Magnesium (1.8-2.4) mg/dl Total Bilirubin (0.2-1) mg/dl AST (15-37) U/L ALT (12-78) U/L Alkaline Phosphatase (45-117) U/L Total Protein (6.4-8.2) gm/dl Albumin (3.4-5.0) gm/dl Globulin (2.5-4.0) gm/dl Albumin/Globulin Ratio (0.9-2) Urine Color Yellow Urine Appearance Clear (Clear) Urine pH 5.0 (4.5-7.5) Ur Specific Topmost 1.015 (1.000-1.030) Urine Protein Negative (Negative) Urine Glucose (UA) Negative (Negative) Urine Ketones Negative (Negative) Urine Blood Negative (Negative) Urine Nitrite Negative (Negative) Urine Bilirubin Negative (Negative) Urine Urobilinogen Negative (Negative) Ur Leukocyte Esterase Negative (Negative) COVID-19 PCR (Negative) SARS-CoV-2 RNA (RT-PCR) Cancelled 04/14/20 04/14/20 Range/Units 20:43 23:17 WBC (4.8-10.8) K/uL RBC (4.2-5.4) M/uL Hgb (12.0-16.0) g/dL Hct (37-47) % MCV (80-100) fL MCH (25-34) pg MCHC (32-36) g/dL RDW Std Deviation (36.4-46.3) fL RDW Coeff of Vonda (11.5-14.5) % Plt Count (130-400) K/uL MPV (7.4-10.4) fL Immature Gran % (Auto) % Neut % (Auto) % Lymph % (Auto) % [place] % (Auto) % Eos % (Auto) % Baso % (Auto) % Neut # (Auto) (1.4-6.5) K/uL Lymph # (Auto) (1.2-3.4) K/uL [place] # (Auto) (0.11-0.59) K/uL Eos # (Auto) (0-0.5) K/uL Baso # (Auto) (0-0.2) K/uL Immature Gran # (Auto) (0.00-0.02) K/uL PT (9.0-12.0) Seconds INR (0.9-1.1) APTT (21.0-31.0) Seconds PTT Ratio ABG pH 7.48 H (7.35-7.45) ABG pCO2 31 L (35-46) mmHg ABG pO2 58 L (80-95) mmHg ABG HCO3 23 (19-24) mmol/L ABG O2 Saturation 90.8 (90-95) % ABG Base Excess 0.1 (-9-1.8) mEq/L Dillon Test POS (Pos) Barometric Pressure 730.7 mm/Hg Oxygen Given ROOM AIR Sodium (136-145) mmol/L Potassium (3.5-5.1) mmol/L Chloride (98-107) mmol/L Carbon Dioxide (21-32) mmol/L Anion Gap (3-11) BUN (7-18) mg/dl Creatinine (0.6-1.2) mg/dl Est Cr Clr Drug Dosing ml/min Est GFR ( Amer) Est GFR (Non-Af Amer) BUN/Creatinine Ratio (10-20) Glucose (70-99) mg/dl Lactate (0.4-2.0) mmol/L Calcium (8.5-10.1) mg/dl Magnesium (1.8-2.4) mg/dl Total Bilirubin (0.2-1) mg/dl AST (15-37) U/L ALT (12-78) U/L Alkaline Phosphatase (45-117) U/L Total Protein (6.4-8.2) gm/dl Albumin (3.4-5.0) gm/dl Globulin (2.5-4.0) gm/dl Albumin/Globulin Ratio (0.9-2) Urine Color Urine Appearance (Clear) Urine pH (4.5-7.5) Ur Specific Topmost (1.000-1.030) Urine Protein (Negative) Urine Glucose (UA) (Negative) Urine Ketones (Negative) Urine Blood (Negative) Urine Nitrite (Negative) Urine Bilirubin (Negative) Urine Urobilinogen (Negative) Ur Leukocyte Esterase (Negative) COVID-19 PCR NEGATIVE (Negative) SARS-CoV-2 RNA (RT-PCR) Administered Medications Discontinued Medications Acetaminophen (Tylenol) 1,000 mg PO NOW STA Stop: 04/14/20 19:55 Last Admin: 04/14/20 20:44 Dose: 1,000 mg Documented by: [id number] Vancomycin HCl 2,500 mg/ (Sodium Chloride) 550 mls @ 200 mls/hr IV NOW STA Stop: 04/14/20 22:23 Last Admin: 04/14/20 20:48 Dose: 200 mls/hr Documented by: [id number] Sodium Chloride (Nss 1000ml) 1,000 mls @ 999 mls/hr IV .Q1H1M ROBERT Stop: 04/14/20 20:54 Last Infusion: 04/14/20 21:37 Dose: 0 mls/hr Documented by: [id number] Admin: 04/14/20 20:48 Dose: 999 mls/hr Documented by: [id number] Cefepime HCl (Maxipime) 2,000 mg in 20 mls @ 5 mls/min IV NOW STA; Protocol Stop: 04/14/20 19:57 Last Admin: 04/14/20 20:45 Dose: 5 mls/min Documented by: [id number] Ipratropium [place] (Atrovent 0.02% 0.5mg/2.5ml) 0.5 mg INH NOW STA Stop: 04/14/20 22:27 Last Admin: 04/14/20 22:42 Dose: 0.5 mg Documented by: [id number] Levalbuterol HCl (Xopenex 1.25mg/0.5ml Neb) 1.25 mg INH ONE STA Stop: 04/14/20 22:27 Last Admin: 04/14/20 22:42 Dose: 1.25 mg Documented by: [id number] Methylprednisolone (Solumedrol) 40 mg IV NOW STA Stop: 04/14/20 22:20 Last Admin: 04/14/20 23:11 Dose: 40 mg Documented by: [id number] Discharge Plan Visit Data Chief Complaint: Cough Stated Complaint: COUGH, FEVER, ILLNESS ED Provider: Michael Moe Discharge Problem: Hypoxia, Cough, Fever Forms Stand Alone Forms: [facility] Prescriptions Prescriptions: No Action nitroglycerin 0.4 mg tablet, sublingual 0.4 mg SL DIRECTED PRN (Reason: Chest Pain) Qty: 30 RF: 0 fluticasone propionate 50 mcg/actuation spray,suspension 2 sprays intranasal DAILY RF: 0 albuterol sulfate 90 mcg/actuation HFA aerosol inhaler 2 puffs inhalation Q4H PRN (Reason: shortness of breath or wheezing) Qty: 2 RF: 0 Xarelto 20 mg tablet 20 mg PO DAILY RF: 0 azelastine 137 mcg (0.1 %) aerosol,spray 2 spray INTNAS DAILY Qty: 30 RF: 11 loratadine 10 mg Tablet 10 mg PO DAILY RF: 0 omeprazole 20 mg capsule,delayed release(DR/EC) 20 mg PO DAILY PRN (Reason: HEARTBURN/INDIGESTION) RF: 0 levothyroxine 50 mcg Tablet 50 mcg PO DAILY RF: 0 sertraline 50 mg Tablet 50 mg PO DAILY RF: 0 metoprolol tartrate 25 mg Tablet 25 mg PO BID RF: 0 levalbuterol tartrate [Xopenex HFA] 45 mcg/actuation HFA aerosol inhaler 1 puff INHALATION Q6H PRN (Reason: Shortness Of Breath Or Wheezing) RF: 0 Pulmicort Flexhaler 90 mcg/actuation aerosol powdr breath activated 2 inh INHALATION BID RF: 0 prednisone 5 mg Tablet 5 mg PO DAILY RF: 0 furosemide [Lasix] 20 mg Tablet 20 mg PO 2XWK RF: 0 Discharge Problem: Fever Qualifiers: Fever type: unspecified Qualified Code(s): R50.9 - Fever, unspecified
[2020-04-14] MEDS ORDERED: CEFEPIME 2,000 MG/20 ML VIAL IV STA (19:54)
[2020-04-14] MEDS ORDERED: ACETAMINOPHEN 500 MG TAB PO STA (19:54)
[2020-04-14] MEDS ORDERED: VANCOMYCIN CONSULT ACTIVE PRN (19:54)
[2020-04-14] MEDS ORDERED: VANCOMYCIN HCL 2,500 MG in SODIUM CHLORIDE 0.9% 500 ML IV STA (19:54)
[2020-04-14] MEDS ORDERED: SODIUM CHLORIDE 0.9% 1000ML 1,000 ML IV SCH (20:00)
[2020-04-14 20:10] LABS: Basophils # (auto) 0.01 K/uL (0-0.2); Basophils % (auto) 0.1 %; Eosinophils # (auto) 0.08 K/uL (0-0.5); Eosinophils % (auto) 0.7 %; Hematocrit (blood only) 38.6 % (37-47); Hemoglobin 12.1 g/dL (12.0-16.0); Immature Granulocytes # (auto) 0.03 K/uL (0.00-0.02); Immature Granulocytes % (auto) 0.3 %; Lymphocytes # (auto) 0.74 K/uL (1.2-3.4); Lymphocytes % (auto) 6.4 %; Mean Corpuscular Hemoglobin 28.3 pg (25-34); Mean Corpuscular Hgb Conc 31.3 g/dL (32-36); Mean Corpuscular Volume 90.2 fL (80-100); Mean Platelet Volume 9.9 fL (7.4-10.4); Monocytes # (auto) 0.36 K/uL (0.11-0.59); Monocytes % (auto) 3.1 %; Neutrophils # (auto) 10.26 K/uL (1.4-6.5); Neutrophils % (auto) 89.4 %; Platelet Count 250 K/uL (130-400); RDW Coefficient of Variation 15.3 % (11.5-14.5); RDW Standard Deviation 50.4 fL (36.4-46.3); Red Blood Count 4.28 M/uL (4.2-5.4); White Blood Count 11.48 K/uL (4.8-10.8)
[2020-04-14 20:20] LABS: Partial Thromboplastin Time 28.9 Seconds (21.0-31.0)
[2020-04-14 20:26] LABS: Albumin Level 3.2 gm/dl (3.4-5.0); BUN Creatinine Ratio 14.1 (10-20); Calcium 10.1 mg/dl (8.5-10.1); Est GFR (African American) 57.8; Est GFR (Non-African American) 49.9; Magnesium 1.8 mg/dl (1.8-2.4); Potassium 3.7 mmol/L (3.5-5.1)
[2020-04-14 20:29] LABS: Albumin Globulin Ratio 0.7 (0.9-2); Bilirubin,Total 0.3 mg/dl (0.2-1); Globulin 4.4 gm/dl (2.5-4.0); Total Protein 7.6 gm/dl (6.4-8.2)
[2020-04-14 21:32] LABS: Appearance Urine Clear (Clear); Bilirubin Urine Negative (Negative); Blood Urine Negative (Negative); Color Urine Yellow; Glucose Urine UA Negative (Negative); Ketones Urine Negative (Negative); Leukocyte Esterase Urine Negative (Negative); Nitrite Urine Negative (Negative); Protein Urine Negative (Negative); Specific Gravity Urine 1.015 (1.000-1.030); Urobilinogen Urine Negative (Negative)
[2020-04-14] MEDS ORDERED: XOPENEX/ATROVENT 1.25mg/0.5MG NEB COMBO NEB STA (22:19)
[2020-04-14] MEDS ORDERED: MAGNESIUM SULFATE / D5W 1 GM/100 ML BAG IV STA (22:19)
[2020-04-14] MEDS ORDERED: IPRATROPIUM BROMIDE NEB SOLN 0.02% 2.5 ML VIAL INH STA (22:26)
[2020-04-14] MEDS ORDERED: LEVALBUTEROL 1.25MG/0.5ML NEB INH STA (22:26)
[2020-04-14] MEDS ORDERED: XOPENEX/ATROVENT 1.25mg/0.5MG NEB COMBO NEB SCH (22:30)
[2020-04-14 23:27] LABS: Base Excess ABG 0.1 mEq/L (-9-1.8); HCO3 ABG 23 mmol/L (19-24); Oxygen Saturation ABG 90.8 % (90-95); PCO2 ABG 31 mmHg (35-46); PO2 ABG 58 mmHg (80-95); pH ABG 7.48 (7.35-7.45)
[2020-04-14 23:28] LABS: Allen Test POS (Pos)
--- NOTE | 2020-04-14 23:30 | History & Physical Report ---
Date of Service April 14, 2020 Assessment & Plan (1) Acute hypoxemic respiratory failure: Secondary to complicated bronchitis ? Restrictive lung disease exacerbation hx sarcoidosis on chronic steroid Rx Sepsis secondary to above chronic diastolic heart failure (EF 55%, TTE 2019), euvolemic to dry A. fib/Aflutter, heart rate slightly elevated, on Xarelto HTN, stable hypothyroidism, euthyroid as of recent outpatient TSH past history DVT as per records anxiety/mood disorder, patient anxious given illness and sick pet cat currently admitted at a local veterinary clinic Medical telemetry Supplemental O2 Solu-Medrol 1 dose stat, Nebs RTC for possible restrictive lung disease exacerbation Cultures, Doxycycline Pulmonary consult if without improvement in a.m. Anxiolytic PRN DVT prophylaxis. Xarelto Full code Total critical care time was 40 minutes. Text document was generated using SMS [employer] voice recognition software. It may contain grammatical or spelling errors. Kindly contact undersigned for clarification of any documentation item in question. History of Present Illness Chief Complaint: Cough S OB Primary Care Provider: Rina Jacobson MD History obtained from patient and records. Medical history significant for chronic diastolic heart failure (EF 55%, TTE 2019), A. fib on Xarelto, HTN, hypothyroidism, past history DVT, hx PMR as per records, sarcoidosis on chronic steroid Rx, anxiety/mood disorder. This afternoon, patient noted junky cough symptoms with shortness of breath and chest tightness. Fever, chills. Denies aspiration. No recent known COVID-19 contacts although her works at a local grocery. Patient noted to be hypoxemic at the ER, O2 sats 80s. Patient received Vancomycin and Cefepime for sepsis. Medical History as above Surgical History : Ankle surgery, cholecystostomy, partial colectomy, appendectomy, fibroid uterus tumor removal, tonsillectomy/adenoidectomy, hip replacement Family History : Diabetes, heart disease, stroke Personal/Social history : Non-smoker, no EtOH intake, retired bilingual secretary, lives with Allergies Allergy/AdvReac Type Severity Reaction Status Date / Time morphine Allergy Unknown ANAPHYLAXIS Verified 03/23/20 10:27 albuterol AdvReac Severe SHAKING Verified 03/23/20 10:27 ALL OVER ipratropium AdvReac Severe SHAKING Verified 03/23/20 10:27 ALL OVER Home Medications Home Medications Medication Instructions Recorded Confirmed Type loratadine 10 mg PO DAILY 09/23/18 04/14/20 History nitroglycerin 0.4 mg sublingual 0.4 mg SL DIRECTED PRN #30 tab 05/04/19 04/14/20 History tablet albuterol sulfate 90 mcg/actuation 2 puffs INHALATION Q4H PRN #2 gm 06/03/19 04/14/20 History aerosol inhaler fluticasone propionate 50 2 sprays INTRANASAL DAILY gm 06/03/19 04/14/20 History mcg/actuation nasal spray,suspension rivaroxaban 20 mg tablet 20 mg PO DAILY 06/03/19 04/14/20 History omeprazole 20 mg capsule,delayed 20 mg PO DAILY PRN 09/25/19 04/14/20 History release azelastine 137 mcg (0.1 %) nasal 2 spray INTNAS DAILY #30 ml 03/17/20 04/14/20 Rx spray aerosol budesonide [Pulmicort Flexhaler] 2 inh INHALATION BID 04/14/20 04/14/20 History furosemide [Lasix] 20 mg PO 2XWK 04/14/20 04/14/20 History levalbuterol tartrate [Xopenex HFA] 1 puff INHALATION Q6H PRN 04/14/20 04/14/20 History levothyroxine 50 mcg PO DAILY 04/14/20 04/14/20 History metoprolol tartrate 25 mg PO BID 04/14/20 04/14/20 History prednisone 5 mg PO DAILY 04/14/20 04/14/20 History sertraline 50 mg PO DAILY 04/14/20 04/14/20 History Past Med/Surg History Medical History Acute bronchitis Allergic rhinitis Atrial fibrillation (Acute) CAD (coronary artery disease), [place] coronary artery Calcified granuloma of lung Chest discomfort Chronic asthmatic bronchitis Chronic diastolic congestive heart failure Cough Deep vein thrombosis of distal lower extremity Deep vein thrombosis of lower extremity Dysphagia Dyspnea Dyspnea on exertion Esophageal reflux 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 Hyperlipidemia Leg pain Myalgia and myositis Nocturnal hypoxemia Nonspecific abnormal findings on radiological and examination of intrathoracic organs Osteoporosis Polymyalgia rheumatica Sarcoidosis Shortness of breath Sleep apnea Sleep disturbances Snoring Ulcer Varicella zoster Vitamin D deficiency Surgical History History of hip surgery Family History Mother Diabetes Heart disease Unknown Diabetes Hypertension Stroke syndrome Acute myocardial infarction Heart disease Father Hypertension Stroke syndrome Brother Acute myocardial infarction Heart disease Other No pertinent family history Social History Preferred Language: Telugu Communication Ability: Effective Beliefs That Will Affect Care: None Current Living Situation: Spouse Feels Safe at Home: Yes Safety Concerns: Feels Safe At This Time Smoking Status: Never smoker Hx Alcohol Use: No Hx Substance Use: No Review of Systems Review of Systems: As per HPI, all 10 systems reviewed, all other ROS negative Physical Exam Physical Exam: GENERAL: Slightly uncomfortable, anxious, obese, minimal respiratory distress, looks younger than stated age SKIN: Normal color, warm HEENT: [place] palpebral conjunctivae, no ptosis, dry buccal mucosa, nasal cannula in place NECK : Supple, short neck, no tenderness CHEST : Decreased breath sounds, expiratory wheezes , no tenderness HEART : Tachycardic, no obvious murmurs ABDOMEN: Some distention, nontender EXTREMITIES : Minimal LE swelling, no LE tenderness, no other conspicuous deformities noted NEUROLOGIC : Coherent, no facial asymmetry, no other gross focality Results & Data Results & Data ([facility]) Vital Signs (Past 12 Hours) Vital Signs Temp Pulse Pulse Resp BP Pulse Ox 04/14/20 22:44 90 16 92 04/14/20 21:30 102 H 24 133/63 92 04/14/20 21:01 104 H 24 141/75 H 93 04/14/20 20:54 93 H 23 149/75 H 91 04/14/20 20:31 87 24 141/67 H 94 04/14/20 20:30 89 21 93 04/14/20 20:00 89 20 130/72 92 04/14/20 19:46 88 20 97 04/14/20 19:41 88 22 139/73 96 04/14/20 19:30 38.2 C H 88 20 139/73 97 Laboratory Results Laboratory Results WBC 11.48 K/uL (4.8-10.8) H 04/14/20 19:50 RBC 4.28 M/uL (4.2-5.4) 04/14/20 19:50 Hgb 12.1 g/dL (12.0-16.0) 04/14/20 19:50 Hct 38.6 % (37-47) 04/14/20 19:50 MCV 90.2 fL (80-100) 04/14/20 19:50 MCH 28.3 pg (25-34) 04/14/20 19:50 MCHC 31.3 g/dL (32-36) L 04/14/20 19:50 RDW Std Deviation 50.4 fL (36.4-46.3) H 04/14/20 19:50 RDW Coeff of [place] 15.3 % (11.5-14.5) H 04/14/20 19:50 Plt Count 250 K/uL (130-400) 04/14/20 19:50 MPV 9.9 fL (7.4-10.4) 04/14/20 19:50 Immature Gran % (Auto) 0.3 % 04/14/20 19:50 Neut % (Auto) 89.4 % 04/14/20 19:50 Lymph % (Auto) 6.4 % 04/14/20 19:50 [place] % (Auto) 3.1 % 04/14/20 19:50 Eos % (Auto) 0.7 % 04/14/20 19:50 Baso % (Auto) 0.1 % 04/14/20 19:50 Neut # (Auto) 10.26 K/uL (1.4-6.5) H 04/14/20 19:50 Lymph # (Auto) 0.74 K/uL (1.2-3.4) L 04/14/20 19:50 [place] # (Auto) 0.36 K/uL (0.11-0.59) 04/14/20 19:50 Eos # (Auto) 0.08 K/uL (0-0.5) 04/14/20 19:50 Baso # (Auto) 0.01 K/uL (0-0.2) 04/14/20 19:50 Immature Gran # (Auto) 0.03 K/uL (0.00-0.02) H 04/14/20 19:50 PT 11.0 Seconds (9.0-12.0) 04/14/20 19:50 INR 1.0 (0.9-1.1) 04/14/20 19:50 APTT 28.9 Seconds (21.0-31.0) 04/14/20 19:50 PTT Ratio 1.0 04/14/20 19:50 ABG pH 7.48 (7.35-7.45) H 04/14/20 23:17 ABG pCO2 31 mmHg (35-46) L 04/14/20 23:17 ABG pO2 58 mmHg (80-95) L 04/14/20 23:17 ABG HCO3 23 mmol/L (19-24) 04/14/20 23:17 ABG O2 Saturation 90.8 % (90-95) 04/14/20 23:17 ABG Base Excess 0.1 mEq/L (-9-1.8) 04/14/20 23:17 [place] Test POS (Pos) 04/14/20 23:17 Barometric Pressure 730.7 mm/Hg 04/14/20 23:17 Oxygen Given ROOM AIR 04/14/20 23:17 Sodium 137 mmol/L (136-145) 04/14/20 19:50 Potassium 3.7 mmol/L (3.5-5.1) 04/14/20 19:50 Chloride 106 mmol/L (98-107) 04/14/20 19:50 Carbon Dioxide 24 mmol/L (21-32) 04/14/20 19:50 Anion Gap 7.0 (3-11) 04/14/20 19:50 BUN 15 mg/dl (7-18) 04/14/20 19:50 Creatinine 1.03 mg/dl (0.6-1.2) 04/14/20 19:50 Est Cr Clr Drug Dosing 49.0 ml/min 04/14/20 19:50 Est GFR ( Amer) 57.8 04/14/20 19:50 Est GFR (Non-Af Amer) 49.9 04/14/20 19:50 BUN/Creatinine Ratio 14.1 (10-20) 04/14/20 19:50 Glucose 105 mg/dl (70-99) H 04/14/20 19:50 Lactate 1.5 mmol/L (0.4-2.0) 04/14/20 20:35 Calcium 10.1 mg/dl (8.5-10.1) 04/14/20 19:50 Magnesium 1.8 mg/dl (1.8-2.4) 04/14/20 19:50 Total Bilirubin 0.3 mg/dl (0.2-1) 04/14/20 19:50 AST 22 U/L (15-37) 04/14/20 19:50 ALT 22 U/L (12-78) 04/14/20 19:50 Alkaline Phosphatase 82 U/L (45-117) 04/14/20 19:50 Total Protein 7.6 gm/dl (6.4-8.2) 04/14/20 19:50 Albumin 3.2 gm/dl (3.4-5.0) L 04/14/20 19:50 Globulin 4.4 gm/dl (2.5-4.0) H 04/14/20 19:50 Albumin/Globulin Ratio 0.7 (0.9-2) L 04/14/20 19:50 Urine Color Yellow 04/14/20 20:43 Urine Appearance Clear (Clear) 04/14/20 20:43 Urine pH 5.0 (4.5-7.5) 04/14/20 20:43 Ur Specific [place] 1.015 (1.000-1.030) 04/14/20 20:43 Urine Protein Negative (Negative) 04/14/20 20:43 Urine Glucose (UA) Negative (Negative) 04/14/20 20:43 Urine Ketones Negative (Negative) 04/14/20 20:43 Urine Blood Negative (Negative) 04/14/20 20:43 Urine Nitrite Negative (Negative) 04/14/20 20:43 Urine Bilirubin Negative (Negative) 04/14/20 20:43 Urine Urobilinogen Negative (Negative) 04/14/20 20:43 Ur Leukocyte Esterase Negative (Negative) 04/14/20 20:43 COVID-19 PCR NEGATIVE (Negative) 04/14/20 20:43 SARS-CoV-2 RNA (RT-PCR) Cancelled 04/14/20 20:43 Diagnostic Findings Chest x-ray as per my interpretation atelectasis, cardiomegaly EKG as per my interpretation : Rate 85, atrial flutter, normal axis, no ischemia
[2020-04-14] MEDS ORDERED: DOXYCYCLINE HYCLATE 100 MG CAP PO STA (23:31)
[2020-04-15] MEDS ORDERED: PROMETHAZINE HCL 12.5 MG in SODIUM CHLORIDE 0.9% 50 ML IV PRN (02:19)
[2020-04-15] MEDS ORDERED: PANTOprazole 40 MG TAB PO PRN (02:19)
[2020-04-15] MEDS ORDERED: TRAMADOL HCL 50 MG TABLET PO PRN (02:19)
[2020-04-15] MEDS ORDERED: LORazepam 0.25 MG/0.5 ML VIAL IV PRN (02:19)
[2020-04-15] MEDS ORDERED: LACTATED RINGER'S 1,000 ML IV ONE (02:19)
[2020-04-15] MEDS ORDERED: LEVALBUTEROL 1.25MG/0.5ML NEB INH SCH (03:00)
[2020-04-15] MEDS ORDERED: IPRATROPIUM BROMIDE NEB SOLN 0.02% 2.5 ML VIAL INH SCH (03:00)
[2020-04-15] MEDS ORDERED: MAGNESIUM SULFATE / D5W 1 GM/100 ML BAG IV ONE (03:00)
[2020-04-15] MEDS: RIVAROXABAN 20 MG TAB PO SCH ×2 (05:32→08:09)
[2020-04-15] MEDS: METOPROLOL TARTRATE 25 MG TAB PO SCH ×3 (05:32→20:20)
[2020-04-15] MEDS: LEVOTHYROXINE SODIUM 50 MCG TABLET PO SCH (05:32)
[2020-04-15 06:53] LABS: Basophils # (auto) 0.01 K/uL (0-0.2); Basophils % (auto) 0.1 %; Hemoglobin 10.9 g/dL (12.0-16.0); Immature Granulocytes # (auto) 0.03 K/uL (0.00-0.02); Immature Granulocytes % (auto) 0.2 %; Lymphocytes # (auto) 0.52 K/uL (1.2-3.4); Mean Corpuscular Hemoglobin 28.2 pg (25-34); Mean Corpuscular Hgb Conc 32.1 g/dL (32-36); Mean Corpuscular Volume 88.1 fL (80-100); Mean Platelet Volume 9.7 fL (7.4-10.4); Monocytes # (auto) 0.11 K/uL (0.11-0.59); Monocytes % (auto) 0.8 %; Neutrophils # (auto) 12.41 K/uL (1.4-6.5); Neutrophils % (auto) 94.9 %; Platelet Count 234 K/uL (130-400); RDW Coefficient of Variation 15.3 % (11.5-14.5); RDW Standard Deviation 49.3 fL (36.4-46.3); Red Blood Count 3.86 M/uL (4.2-5.4); White Blood Count 13.08 K/uL (4.8-10.8)
[2020-04-15] MEDS ORDERED: XOPENEX/ATROVENT 1.25mg/0.5MG NEB COMBO NEB SCH (07:00)
[2020-04-15] MEDS: IPRATROPIUM BROMIDE NEB SOLN 0.02% 2.5 ML VIAL INH SCH ×3 (07:07→19:12)
[2020-04-15] MEDS: LEVALBUTEROL 1.25MG/0.5ML NEB INH SCH ×3 (07:07→19:12)
[2020-04-15 07:28] LABS: BUN Creatinine Ratio 14.3 (10-20); Calcium 9.1 mg/dl (8.5-10.1); Creatinine Clr Calc Pharmacy 53.6 ml/min; Est GFR (African American) 63.7; Potassium 3.8 mmol/L (3.5-5.1)
--- NOTE | 2020-04-15 07:30 | XRay Report ---
XR chest 1V portable HISTORY: SEPSIS COMPARISON: Chest 03/16/2020. FINDINGS: Mild diffuse interstitial thickening. This is likely chronic. A few bibasilar linear densit ies favor subsegmental atelectasis or scarring. This is similar to the prior study. No new focal lung consolidations to suggest pneumonia. No evidence for pulmonary edema. The heart remains borderline e nlarged. No pleural effusions. No pneumothorax. IMPRESSION: No significant change compared to the prior study. No acute process. ACT 112: Negative or not required by law. Electronically signed by: Deniz Guillaume M.D. 04/15/2020 7:29 AM
[2020-04-15 07:39] LABS: Thyroid Stimulating Hormone 0.453 uIu/ml (0.300-4.500)
[2020-04-15] MEDS: ALUMINUM/MAGNESIUM/SIMETH (MAALOX MAX) 30 ML UDC PO PRN (08:01)
[2020-04-15] MEDS: AZELASTINE~ORDER AWAITING ACTION SCH ×2 (08:01→15:20)
[2020-04-15] MEDS: PANTOprazole 40 MG TAB PO SCH (08:03)
[2020-04-15] MEDS: DOXYCYCLINE HYCLATE 100 MG CAP PO SCH ×2 (08:07→20:20)
[2020-04-15] MEDS: LORATADINE 10 MG TAB PO SCH (08:07)
[2020-04-15] MEDS: FLUTICASONE PROPIONATE NA SPR 16 GM BTL SCH (08:07)
[2020-04-15] MEDS: FLUTICASONE FUROATE 200MCG 14 PUFFS/INHALER INH SCH (08:08)
[2020-04-15] MEDS: SERTRALINE HCL 50 MG TABLET PO SCH (08:08)
[2020-04-15] MEDS ORDERED: predniSONE 5 MG TAB PO SCH (09:00)
[2020-04-15] MEDS ORDERED: COUGH DROP (SUGAR FREE) LOZ 24 LOZ/1 BOX BUCCAL ONE (11:36)
[2020-04-15] MEDS ORDERED: NITROGLYCERIN SL 0.4 MG/TAB TAB SL PRN (12:24)
[2020-04-15] MEDS ORDERED: predniSONE 5 MG TAB PO ONE (12:25)
--- NOTE | 2020-04-15 15:53 | Electrocardiogram Report ---
Test Reason : Blood Pressure : / mmHG Vent. Rate : 093 BPM Atrial Rate : 093 BPM P-R Int : 170 ms QRS Dur : 090 ms QT Int : 378 ms P-R-T Axes : 053 030 073 degrees QTc Int : 469 ms Normal sinus rhythm Diffuse Minor Nonspecific ST abnormality Abnormal ECG When compared with ECG of 14-APR-2020 19:46, Sinus rhythm has replaced Atrial flutter Confirmed by Matthias Arechiga ([id number]) on 04/15/2020 3:53:28 PM Referred By: REFERRED SELF Confirmed By:Matthias Arechiga
--- NOTE | 2020-04-15 16:09 | Hospitalist Progress Note ---
Date of Service April 15, 2020 Assessment & Plan (1) Acute hypoxemic respiratory failure: Acute on chronic hypoxic respiratory failure Chronic oxygen dependency: 2 L at bedtime with CPAP Complicated bronchitis H/O Extrinsic asthma, sarcoidosis, elevated IgE levels, allergic rhinitis Follows with [facility] pulmonology CXR:No significant change compared to the prior study. No acute process. Recently completed prednisone taper course On chronic prednisone therapy Blood cultures:pending No wheezing on exam Normal lactate levels Continue doxycycline Increase prednisone to 10 mg daily Continue Singulair, home inhalers, duo nebs PRN Consider CT chest, pulmonary eval if no improvement Continue supplemental oxygen as needed Hyperglycemia Likely secondary to steroids Check HbA1c Monitor blood glucose levels Chronic diastolic heart failure (EF 55%, TTE 2019) No signs of exacerbation Continue home diuretics Chronic atrial fibrillation/A.flutter Currently in sinus Continue metoprolol 25 mg twice daily On Xarelto for anticoagulation HTN Blood pressure stable Continue current medications Hypothyroidism Continue levothyroxine H/O DVT on Xarelto Anxiety/mood disorder monitor for now DVT px: Xarelto Code Status Full code Disposition Expected discharge home when medically stable Admission and Anticipated Discharge Date Admission Date: April 14, 2020 Subjective Patient is seen and examined at bedside Cough, dyspnea slightly improved from the time of admission Denies any hemoptysis Had heartburn/chest discomfort earlier today which currently resolved Recently completed prednisone taper course as per patient Offers no other complaints Review of Systems Review of Systems: All systems reviewed & are unremarkable except as noted in HPI & below Physical Exam Physical Exam: Physical Exam: Vitals signs as noted above General Appearance:Obese, no apparent distress Head: normocephalic, Atraumatic Eyes: normal inspection, EOMI Neck: supple, Trachea midline Respiratory/Chest: Normal breath sounds, CTA, No accessory muscle use Cardiovascular: S1, S2, No murmur Abdomen/GI:Soft, Non tender, Bowel sounds present Extremities/Musculoskelatal:normal inspection, Trace edema Neurologic/Psych:AAOX3, grossly no focal neurological deficits Skin: normal color, warm Results & Data Results & Data ([facility]) Vital Signs (Past 12 Hours) Vital Signs Temp Pulse Pulse Resp BP Pulse Ox 04/15/20 15:08 36.6 C 63 18 119/65 94 04/15/20 13:35 95 04/15/20 13:33 60 18 96 04/15/20 11:25 36.7 C 61 18 115/63 93 04/15/20 07:37 36.4 C L 89 20 115/64 92 04/15/20 07:15 70 04/15/20 07:09 68 18 93 04/15/20 04:41 89 Laboratory Results Short CBC 04/14/20 04/15/20 Range/Units 19:50 06:42 WBC 11.48 H 13.08 H (4.8-10.8) K/uL Hgb 12.1 10.9 L (12.0-16.0) g/dL Hct 38.6 34.0 L (37-47) % Plt Count 250 234 (130-400) K/uL BMP 04/14/20 04/15/20 19:50 06:42 Sodium 137 141 Potassium 3.7 3.8 Chloride 106 111 H Carbon Dioxide 24 23 BUN 15 14 Creatinine 1.03 0.95 Glucose 105 H 177 H Calcium 10.1 9.1 Cardiac Enzymes 04/14/20 04/15/20 Range/Units 19:50 06:42 Troponin I < 0.015 < 0.015 (0-0.045) ng/ml Liver Function 04/14/20 Range/Units 19:50 Total Bilirubin 0.3 (0.2-1) mg/dl AST 22 (15-37) U/L ALT 22 (12-78) U/L Alkaline Phosphatase 82 (45-117) U/L Albumin 3.2 L (3.4-5.0) gm/dl Urine 04/14/20 Range/Units 20:43 Urine Color Yellow Urine Appearance Clear (Clear) Urine pH 5.0 (4.5-7.5) Ur Specific [place] 1.015 (1.000-1.030) Urine Protein Negative (Negative) Urine Glucose (UA) Negative (Negative)
--- NOTE | 2020-04-15 16:11 | Electrocardiogram Report ---
Test Reason : Blood Pressure : / mmHG Vent. Rate : 084 BPM Atrial Rate : 300 BPM P-R Int : 000 ms QRS Dur : 078 ms QT Int : 366 ms P-R-T Axes : 047 035 067 degrees QTc Int : 432 ms Poor data quality, interpretation may be adversely affected Normal sinus rhythm Abnormal ECG When compared with ECG of 23-SEP-2018 12:12, Vent. rate has increased BY 38 BPM Otherwise no significant change Confirmed by Matthias Arechiga ([id number]) on 04/15/2020 4:10:52 PM Referred By: REFERRED SELF Confirmed By:Matthias Arechiga
[2020-04-15] MEDS ORDERED: FUROSEMIDE 20 MG TAB PO SCH (16:30)
[2020-04-15] MEDS: MONTELUKAST SODIUM 10 MG TABLET PO SCH (20:20)
[2020-04-16] MEDS: AZELASTINE~ORDER AWAITING ACTION SCH ×4 (00:28→23:19)
[2020-04-16] MEDS: LEVALBUTEROL 1.25MG/0.5ML NEB INH SCH ×4 (00:34→19:18)
[2020-04-16] MEDS: IPRATROPIUM BROMIDE NEB SOLN 0.02% 2.5 ML VIAL INH SCH ×4 (00:35→19:18)
[2020-04-16] MEDS: LEVOTHYROXINE SODIUM 50 MCG TABLET PO SCH (06:17)
[2020-04-16] MEDS: LORATADINE 10 MG TAB PO SCH (07:48)
[2020-04-16] MEDS: FLUTICASONE PROPIONATE NA SPR 16 GM BTL SCH (07:48)
[2020-04-16] MEDS: FLUTICASONE FUROATE 200MCG 14 PUFFS/INHALER INH SCH (07:48)
[2020-04-16] MEDS: METOPROLOL TARTRATE 25 MG TAB PO SCH ×2 (07:49→20:29)
[2020-04-16] MEDS: PANTOprazole 40 MG TAB PO SCH (07:51)
[2020-04-16] MEDS: SERTRALINE HCL 50 MG TABLET PO SCH (07:52)
[2020-04-16] MEDS: RIVAROXABAN 20 MG TAB PO SCH (07:52)
[2020-04-16] MEDS: DOXYCYCLINE HYCLATE 100 MG CAP PO SCH ×2 (07:52→20:29)
[2020-04-16 08:04] LABS: Hemoglobin 11.1 g/dL (12.0-16.0); Mean Corpuscular Hgb Conc 31.7 g/dL (32-36); Mean Corpuscular Volume 88.4 fL (80-100); Mean Platelet Volume 10.1 fL (7.4-10.4); Platelet Count 244 K/uL (130-400); RDW Coefficient of Variation 15.6 % (11.5-14.5); RDW Standard Deviation 50.6 fL (36.4-46.3); Red Blood Count 3.96 M/uL (4.2-5.4); White Blood Count 10.29 K/uL (4.8-10.8)
[2020-04-16 08:28] LABS: Estimated Average Glucose 126 mg/dl
[2020-04-16 08:30] LABS: BUN Creatinine Ratio 16.7 (10-20); Calcium 9.4 mg/dl (8.5-10.1); Creatinine Clr Calc Pharmacy 57.1 ml/min; Est GFR (Non-African American) 59.5; Magnesium 2.3 mg/dl (1.8-2.4); Potassium 3.4 mmol/L (3.5-5.1)
[2020-04-16] MEDS ORDERED: predniSONE 10 MG TABLET PO SCH (09:00)
[2020-04-16] MEDS ORDERED: POTASSIUM CHLORIDE 20 MEQ TABCR PO ONE (09:30)
[2020-04-16] MEDS ORDERED: predniSONE 10 MG TABLET PO ONE (12:13)
--- NOTE | 2020-04-16 16:09 | Hospitalist Progress Note ---
Date of Service April 16, 2020 Assessment & Plan (1) Acute hypoxemic respiratory failure: Acute on chronic hypoxic respiratory failure Chronic oxygen dependency: 2 L at bedtime with CPAP Complicated bronchitis H/O Extrinsic asthma, sarcoidosis, elevated IgE levels, allergic rhinitis Follows with [facility] pulmonology CXR:No significant change compared to the prior study. No acute process. Recently completed prednisone taper course On chronic prednisone therapy Blood cultures:No growth to date No wheezing on exam Normal lactate levels Continue doxycycline Day #2 Increase prednisone to 20 mg daily Continue Singulair, home inhalers, duo nebs PRN Consider CT chest, pulmonary eval if no improvement Saturating low 90s on room air Slowly improving Obtain Sputum gram stain and Cx Hypokalemia Replete electrolytes as needed Prediabetes Likely secondary to steroids HbA1c: 6.0 Monitor blood glucose levels Chronic diastolic heart failure (EF 55%, TTE 2019) No signs of exacerbation Continue home diuretics Chronic atrial fibrillation/A.flutter Currently in sinus Continue metoprolol 25 mg twice daily On Xarelto for anticoagulation HTN stable Continue current medications Hypothyroidism Continue levothyroxine H/O DVT on Xarelto Anxiety/mood disorder monitor for now DVT px: Xarelto Code Status Full code Disposition Expected discharge home when medically stable Admission and Anticipated Discharge Date Admission Date: April 14, 2020 Subjective Patient is seen and examined at bedside States having cough with minimal yellowish expectoration Shortness of breath, chest tightness improved Heartburn resolved Anxious about her Cat Offers no other complaints Review of Systems Review of Systems: All systems reviewed & are unremarkable except as noted in HPI & below Physical Exam Physical Exam: Physical Exam: Vitals signs as noted above General Appearance:Obese, no apparent distress Head: normocephalic, Atraumatic Eyes: normal inspection, EOMI Neck: supple, Trachea midline Respiratory/Chest: Normal breath sounds, CTA, No accessory muscle use Cardiovascular: S1, S2, No murmur Abdomen/GI:Soft, Non tender, Bowel sounds present Extremities/Musculoskelatal:normal inspection, Trace edema Neurologic/Psych:AAOX3, grossly no focal neurological deficits Skin: normal color, warm Results & Data Results & Data ([facility]) Vital Signs (Past 12 Hours) Vital Signs Temp Pulse Pulse Resp BP Pulse Ox 04/16/20 15:45 77 04/16/20 15:00 36.5 C 67 18 104/66 91 04/16/20 13:29 73 18 94 04/16/20 11:00 36.4 C L 61 18 129/83 91 04/16/20 10:31 68 04/16/20 07:10 58 L 18 92 04/16/20 07:00 36.4 C L 61 18 144/79 H 97 Laboratory Results Short CBC 04/16/20 Range/Units 07:34 WBC 10.29 (4.8-10.8) K/uL Hgb 11.1 L (12.0-16.0) g/dL Hct 35.0 L (37-47) % Plt Count 244 (130-400) K/uL BMP 04/16/20 07:34 Sodium 141 Potassium 3.4 L Chloride 109 H Carbon Dioxide 26 BUN 15 Creatinine 0.89 Glucose 89 Calcium 9.4 Cardiac Enzymes 04/15/20 Range/Units 15:49 Troponin I < 0.015 (0-0.045) ng/ml
[2020-04-16] MEDS: MONTELUKAST SODIUM 10 MG TABLET PO SCH (20:29)
[2020-04-17] MEDS: LEVALBUTEROL 1.25MG/0.5ML NEB INH SCH ×4 (01:18→19:08)
[2020-04-17] MEDS: IPRATROPIUM BROMIDE NEB SOLN 0.02% 2.5 ML VIAL INH SCH ×4 (01:18→19:09)
[2020-04-17] MEDS: LEVOTHYROXINE SODIUM 50 MCG TABLET PO SCH (05:53)
[2020-04-17] MEDS: AZELASTINE~ORDER AWAITING ACTION SCH ×3 (07:27→23:54)
[2020-04-17 07:41] LABS: Hematocrit (blood only) 37.8 % (37-47); Hemoglobin 11.5 g/dL (12.0-16.0); Mean Corpuscular Hemoglobin 27.5 pg (25-34); Mean Corpuscular Hgb Conc 30.4 g/dL (32-36); Mean Corpuscular Volume 90.4 fL (80-100); Mean Platelet Volume 9.8 fL (7.4-10.4); Platelet Count 281 K/uL (130-400); RDW Coefficient of Variation 15.5 % (11.5-14.5); RDW Standard Deviation 51.5 fL (36.4-46.3); Red Blood Count 4.18 M/uL (4.2-5.4); White Blood Count 8.42 K/uL (4.8-10.8)
[2020-04-17 08:20] LABS: BUN Creatinine Ratio 20.7 (10-20); Calcium 9.6 mg/dl (8.5-10.1); Creatinine Clr Calc Pharmacy 55.1 ml/min; Est GFR (African American) 66.3; Est GFR (Non-African American) 57.2; Potassium 4.2 mmol/L (3.5-5.1)
[2020-04-17] MEDS: FLUTICASONE FUROATE 200MCG 14 PUFFS/INHALER INH SCH (08:58)
[2020-04-17] MEDS: PANTOprazole 40 MG TAB PO SCH (08:59)
[2020-04-17] MEDS: FLUTICASONE PROPIONATE NA SPR 16 GM BTL SCH (08:59)
[2020-04-17] MEDS: LORATADINE 10 MG TAB PO SCH (08:59)
[2020-04-17] MEDS: DOXYCYCLINE HYCLATE 100 MG CAP PO SCH ×2 (08:59→20:40)
[2020-04-17] MEDS: METOPROLOL TARTRATE 25 MG TAB PO SCH ×2 (08:59→20:40)
[2020-04-17] MEDS: SERTRALINE HCL 50 MG TABLET PO SCH (08:59)
[2020-04-17] MEDS: RIVAROXABAN 20 MG TAB PO SCH (08:59)
[2020-04-17] MEDS ORDERED: predniSONE 20 MG TAB PO SCH (09:00)
[2020-04-17] MEDS ORDERED: FUROSEMIDE 20 MG in SYRINGE 0 ML IV ONE (14:00)
[2020-04-17] MEDS: methylPREDNISolone 40 MG in SYRINGE 0 ML IV SCH (14:53)
--- NOTE | 2020-04-17 17:08 | Hospitalist Progress Note ---
Date of Service April 17, 2020 Assessment & Plan (1) Acute hypoxemic respiratory failure: Acute on chronic hypoxic respiratory failure Chronic oxygen dependency: 2 L at bedtime with CPAP Complicated bronchitis H/O Extrinsic asthma, sarcoidosis, elevated IgE levels, allergic rhinitis Follows with [facility] pulmonology CXR:No significant change compared to the prior study. No acute process. Recently completed prednisone taper course On chronic prednisone therapy Blood cultures:No growth to date Sputum Cx: no growth to date No wheezing on exam Normal lactate levels Continue doxycycline Day #3 start on solumedrol Continue diuretic Continue Singulair, home inhalers, duo nebs PRN Consulted Pulmonology for Input Saturating low 90s on 2 L of Supplemental oxygen Hypokalemia Replete electrolytes as needed Prediabetes Likely secondary to steroids HbA1c: 6.0 Monitor blood glucose levels Chronic diastolic heart failure (EF 55%, TTE 2019) No signs of exacerbation Continue home diuretics Chronic atrial fibrillation/A.flutter Currently in sinus Continue metoprolol 25 mg twice daily On Xarelto for anticoagulation HTN stable Continue current medications Hypothyroidism Continue levothyroxine H/O DVT on Xarelto Anxiety/mood disorder monitor for now DVT px: Xarelto Code Status Full code Disposition Expected discharge home when medically stable Admission and Anticipated Discharge Date Admission Date: April 14, 2020 Subjective Patient is seen and examined at bedside Persistent cough with expectoration Also reports dyspnea Denies hemoptysis Offers no other complaints Review of Systems Review of Systems: All systems reviewed & are unremarkable except as noted in HPI & below Physical Exam Physical Exam: Physical Exam: Vitals signs as noted above General Appearance:Obese, no apparent distress Head: normocephalic, Atraumatic Eyes: normal inspection, EOMI Neck: supple, Trachea midline Respiratory/Chest: Normal breath sounds, CTA, No accessory muscle use Cardiovascular: S1, S2, No murmur Abdomen/GI:Soft, Non tender, Bowel sounds present Extremities/Musculoskelatal:normal inspection, Trace edema Neurologic/Psych:AAOX3, grossly no focal neurological deficits Skin: normal color, warm Results & Data Results & Data ([facility]) Vital Signs (Past 12 Hours) Vital Signs Temp Pulse Pulse Resp BP Pulse Ox 04/17/20 16:00 36.5 C 58 L 16 146/81 H 94 04/17/20 15:34 36.6 C 62 18 118/73 92 04/17/20 15:17 64 07/05/20 13:14 84 18 94 04/17/20 11:00 36.5 C 58 L 18 116/71 91 04/17/20 07:31 58 L 04/17/20 07:30 36.4 C L 56 L 18 158/74 H 95 04/17/20 07:13 58 L 18 93 Laboratory Results Short CBC 04/17/20 Range/Units 07:18 WBC 8.42 (4.8-10.8) K/uL Hgb 11.5 L (12.0-16.0) g/dL Hct 37.8 (37-47) % Plt Count 281 (130-400) K/uL BMP 04/17/20 07:18 Sodium 140 Potassium 4.2 D Chloride 108 H Carbon Dioxide 26 BUN 19 H Creatinine 0.92 Glucose 86 Calcium 9.6
[2020-04-17] MEDS: MONTELUKAST SODIUM 10 MG TABLET PO SCH (20:40)
[2020-04-17] MEDS: ALUMINUM/MAGNESIUM/SIMETH (MAALOX MAX) 30 ML UDC PO PRN (21:59)
[2020-04-18] MEDS: LEVALBUTEROL 1.25MG/0.5ML NEB INH SCH ×2 (00:54→07:11)
[2020-04-18] MEDS: IPRATROPIUM BROMIDE NEB SOLN 0.02% 2.5 ML VIAL INH SCH ×2 (00:56→07:11)
[2020-04-18] MEDS: LEVOTHYROXINE SODIUM 50 MCG TABLET PO SCH (06:05)
[2020-04-18 07:17] LABS: Hematocrit (blood only) 37.8 % (37-47); Mean Corpuscular Hgb Conc 31.7 g/dL (32-36); Mean Corpuscular Volume 88.3 fL (80-100); Platelet Count 310 K/uL (130-400); RDW Coefficient of Variation 15.4 % (11.5-14.5); RDW Standard Deviation 49.5 fL (36.4-46.3); Red Blood Count 4.28 M/uL (4.2-5.4); White Blood Count 10.01 K/uL (4.8-10.8)
[2020-04-18 07:51] LABS: BUN Creatinine Ratio 26.5 (10-20); Calcium 10.3 mg/dl (8.5-10.1); Creatinine Clr Calc Pharmacy 50.2 ml/min; Est GFR (African American) 59.2; Est GFR (Non-African American) 51.1
[2020-04-18] MEDS: DOXYCYCLINE HYCLATE 100 MG CAP PO SCH ×2 (08:02→20:30)
[2020-04-18] MEDS: methylPREDNISolone 40 MG in SYRINGE 0 ML IV SCH (08:02)
[2020-04-18] MEDS: FLUTICASONE FUROATE 200MCG 14 PUFFS/INHALER INH SCH (08:02)
[2020-04-18] MEDS: AZELASTINE~ORDER AWAITING ACTION SCH ×2 (08:02→15:38)
[2020-04-18] MEDS: FLUTICASONE PROPIONATE NA SPR 16 GM BTL SCH (08:03)
[2020-04-18] MEDS: LORATADINE 10 MG TAB PO SCH (08:03)
[2020-04-18] MEDS: METOPROLOL TARTRATE 25 MG TAB PO SCH ×2 (08:03→20:30)
[2020-04-18] MEDS: PANTOprazole 40 MG TAB PO SCH (08:03)
[2020-04-18] MEDS: RIVAROXABAN 20 MG TAB PO SCH (08:03)
[2020-04-18] MEDS: SERTRALINE HCL 50 MG TABLET PO SCH (08:03)
[2020-04-18] MEDS ORDERED: LEVALBUTEROL 1.25MG/0.5ML NEB INH PRN (08:24)
[2020-04-18] MEDS ORDERED: IPRATROPIUM BROMIDE NEB SOLN 0.02% 2.5 ML VIAL INH PRN (08:24)
--- NOTE | 2020-04-18 09:52 | Pulmonary Consultation ---
Date of Consultation April 18, 2020 Assessment & Plan (1) Acute hypoxemic respiratory failure: Chest x-ray 04/14/2020: Good inspiratory effort, bilateral costophrenic and cardiophrenic angles are clean, no clear infiltrate appreciated --Acute on chronic hypoxic respiratory failure Likely secondary to bronchitis on top of asthma Recommend continuing with steroids and gradually taper starting tomorrow. Continue with antibiotics for total of 5 days Continue with montelukast --Questionable history of sarcoidosis Patient never had any biopsy done or bronchoscopy done. CTA chest which was done in 2018 did not show any pulmonary involvement leading to was thinking about sarcoidosis Patient does have elevated calcium but her PTH is 150. This is primary hyperparathyroidism. Lymphopenia is likely from chronic steroid use I would not treat the patient as if the patient has sarcoid for the time being. Even if the patient had sarcoidosis it will be stage I given the hypercalcemia secondary to hyperparathyroidism. Stage I sarcoidosis does not need to be treated. Defer management of hypercalcemia to the primary team Patient can have a dedicated CT chest without contrast nonemergent as an outpatient. --WOLF Patient is compliant with CPAP at home Continue with BiPAP while in the hospital nightly Plan: Continue with steroids and start tapering as of tomorrow. Continue with antibiotics for total of 5 days. Continue with montelukast Outpatient patient can be worked up for possible biologic of the asthma symptoms are not controlled with inhalers. (2) Shortness of breath: (3) Sleep apnea: (4) A-fib: History of Present Illness Attending Physician: Aneesh Gramajo MD History of Present Illness 84-year-old female with past medical history of A. fib on Xarelto, hypertension, hypothyroidism, history of DVT, diastolic CHF who was admitted to the hospital because of chest tightness and shortness of breath. She also had fever and dry cough. Pulmonary was consulted for possible exacerbation of sarcoidosis. I spoke with the patient today at bedside and asked whether she had any biopsy done for her sarcoidosis. Patient does not recall having any bronchoscopies done for diagnosing sarcoid or any skin biopsy. She does say that she was seen by an ichthyologist back in [facility] which looking into her eye said that she might have sarcoid. She followed up with care advocate after that we will order some blood work including CAYDEN level which was normal but he still treated the patient as if the patient had sarcoidosis with prednisone for a couple of months. The only CT chest which I found was back in February 06, 2018: Which did not show any significant mediastinal lymphadenopathy. No reticulation or nodules appreciated. Patient does have pigmented spots on the back as well as on the hands. Seem to be keratosis. Today at the time of examination patient is feeling better the cough is decreased in intensity. Denies any chest pain, shortness of breath is improved. No fever since coming to the hospital. Patient did have Covid-19 PCR in the hospital which was negative. Patient had a spirometry done 06/04/2019 which showed no obstructive lung dysfunction and insignificant bronchodilator response with normal flow volume loops. FEV1 was 122% predicted and FVC was 114% predicted. Social history: Non-smoker, no illicit drug use, no alcohol use. Allergies Allergy/AdvReac Type Severity Reaction Status Date / Time morphine Allergy Unknown ANAPHYLAXIS Verified 03/23/20 10:27 albuterol AdvReac Severe SHAKING Verified 03/23/20 10:27 ALL OVER ipratropium AdvReac Severe SHAKING Verified 03/23/20 10:27 ALL OVER Home Medications Home Medications Medication Instructions Recorded Confirmed Type loratadine 10 mg PO DAILY 09/23/18 04/14/20 History nitroglycerin 0.4 mg sublingual 0.4 mg SL DIRECTED PRN #30 tab 05/04/19 04/14/20 History tablet albuterol sulfate 90 mcg/actuation 2 puffs INHALATION Q4H PRN #2 gm 06/03/19 04/14/20 History aerosol inhaler fluticasone propionate 50 2 sprays INTRANASAL DAILY gm 06/03/19 04/14/20 Hi story mcg/actuation nasal spray,suspension rivaroxaban 20 mg tablet 20 mg PO DAILY 06/03/19 04/14/20 History omeprazole 20 mg capsule,delayed 20 mg PO DAILY PRN 09/25/19 04/14/20 History release azelastine 137 mcg (0.1 %) nasal 2 spray INTNAS DAILY #30 ml 03/17/20 04/14/20 Rx spray aerosol budesonide [Pulmicort Flexhaler] 2 inh INHALATION BID 04/14/20 04/14/20 History furosemide [Lasix] 20 mg PO 2XWK 04/14/20 04/14/20 History levalbuterol tartrate [Xopenex HFA] 1 puff INHALATION Q6H PRN 04/14/20 04/14/20 History levothyroxine 50 mcg PO DAILY 04/14/20 04/14/20 History metoprolol tartrate 25 mg PO BID 04/14/20 04/14/20 History prednisone 5 mg PO DAILY 04/14/20 04/14/20 History sertraline 50 mg PO DAILY 04/14/20 04/14/20 History montelukast [Singulair] 10 mg PO HS 04/15/20 04/15/20 History Patient History Medical History Acute bronchitis Allergic rhinitis Atrial fibrillation (Acute) CAD (coronary artery disease), [place] coronary artery Calcified granuloma of lung Chest discomfort Chronic asthmatic bronchitis Chronic diastolic congestive heart failure Cough Deep vein thrombosis of distal lower extremity Deep vein thrombosis of lower extremity Dysphagia Dyspnea Dyspnea on exertion Esophageal reflux 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 Hyperlipidemia Leg pain Myalgia and myositis Nocturnal hypoxemia Nonspecific abnormal findings on radiological and examination of intrathoracic organs Osteoporosis Polymyalgia rheumatica Sarcoidosis Shortness of breath Sleep apnea Sleep disturbances Snoring Ulcer Varicella zoster Vitamin D deficiency Surgical History History of hip surgery Family History Mother Diabetes Heart disease Unknown Diabetes Hypertension Stroke syndrome Acute myocardial infarction Heart disease Father Hypertension Stroke syndrome Brother Acute myocardial infarction Heart disease Other No pertinent family history Social History Preferred Language: Lao Communication Ability: Effective Beliefs That Will Affect Care: None Current Living Situation: Spouse Feels Safe at Home: Yes Smoking Status: Never smoker Hx Alcohol Use: No Hx Substance Use: No Review of Systems Review of Systems: All systems reviewed & are unremarkable except as noted in HPI & below Physical Exam Physical Exam: Constitutional: No acute distress HEENT: EOMI, PERRLA Respiratory system: Decreased air entry bilaterally, positive bilateral lower lobe crackles, no wheeze, no rhonchi CVS: S1-S2 positive, no murmurs or gallops Abdomen: Soft, nontender, nondistended, positive bowel sounds x4 Extremities: +2 pulses bilaterally radialis/ dorsalis pedis, no cyanosis, no edema, patient has nevi all over the body. Neuro: Awake alert oriented x3 Psych: Normal mood and affect Patient was saturating 97% on room air at the time of examination at rest. Skin: no rashes, warm and dry Lymphatic: no cervical or axillary lymphadenopathy Results & Data Results & Data ([facility]) Vital Signs (Past 12 Hours) Vital Signs Temp Pulse Resp BP BP Pulse Ox 04/18/20 07:13 60 18 92 04/18/20 07:00 36.4 C L 63 18 146/84 H 93 04/18/20 03:00 36.6 C 91 H 19 135/89 93 04/18/20 00:56 59 L 16 95 04/17/20 23:21 36.7 C 93 H 18 127/78 97 04/18/20 06:54 04/18/20 06:54 PG Care Time/CCT Total # of Minutes Spent Total Time Spent with Patient: Total time spent is greater than 50% in coordination of care (as documented) at patient's floor/unit and/or counseling patient: Coding Level of Care Code 39697 Initial Inpt Care Lvl 3 Diagnoses Acute hypoxemic respiratory failure J96.01 Shortness of breath R06.02 Sleep apnea G47.30 A-fib I48.91
--- NOTE | 2020-04-18 13:29 | Hospitalist Progress Note ---
Date of Service April 18, 2020 Assessment & Plan (1) Acute hypoxemic respiratory failure: Acute on chronic hypoxic respiratory failure Chronic oxygen dependency: 2 L at bedtime with CPAP Complicated bronchitis H/O Extrinsic asthma, sarcoidosis, elevated IgE levels, allergic rhinitis Follows with [facility] pulmonology CXR:No significant change compared to the prior study. No acute process. Recently completed prednisone taper course On chronic prednisone therapy Blood cultures:No growth to date Sputum Cx: no growth No significant wheezing on exam Normal lactate levels Continue doxycycline Day #4 Continue Solumedrol 40mg daily Continue diuretic Continue Singulair, home inhalers, duo nebs PRN Consulted Pulmonology for Input Await for pulmonary input Continue supplemental oxygen as needed Continue CPAP at bedtime Hypokalemia Replete electrolytes as needed Resolved Prediabetes Likely secondary to steroids HbA1c: 6.0 Monitor blood glucose levels Chronic diastolic heart failure (EF 55%, TTE 2019) No signs of exacerbation Continue home diuretics Chronic atrial fibrillation/A.flutter Currently in sinus Continue metoprolol 25 mg twice daily On Xarelto for anticoagulation HTN stable Continue current medications Hypothyroidism Continue levothyroxine H/O DVT on Xarelto Anxiety/mood disorder monitor for now DVT px: Xarelto Code Status Full code Disposition Expected discharge home when medically stable Admission and Anticipated Discharge Date Admission Date: April 14, 2020 Subjective Patient is seen and examined at bedside Cough, dyspnea slowly improving No new complaints Denies chest pain, hemoptysis, dizziness, nausea, abdominal pain Sputum Cx: negative Review of Systems Review of Systems: All systems reviewed & are unremarkable except as noted in HPI & below Physical Exam Physical Exam: Physical Exam: Vitals signs as noted above General Appearance:Obese, no apparent distress Head: normocephalic, Atraumatic Eyes: normal inspection, EOMI Neck: supple, Trachea midline Respiratory/Chest: Normal breath sounds, CTA, No accessory muscle use Cardiovascular: S1, S2, No murmur Abdomen/GI:Soft, Non tender, Bowel sounds present Extremities/Musculoskelatal:normal inspection, Trace edema Neurologic/Psych:AAOX3, grossly no focal neurological deficits Skin: normal color, warm Results & Data Results & Data ([facility]) Vital Signs (Past 12 Hours) Vital Signs Temp Pulse Pulse Resp BP BP Pulse Ox 04/18/20 11:00 36.4 C L 74 18 149/81 H 94 04/18/20 07:13 60 18 92 04/18/20 07:00 36.4 C L 59 L 63 18 146/84 H 93 04/18/20 03:00 36.6 C 91 H 19 135/89 93 Laboratory Results Short CBC 04/18/20 Range/Units 06:54 WBC 10.01 (4.8-10.8) K/uL Hgb 12.0 (12.0-16.0) g/dL Hct 37.8 (37-47) % Plt Count 310 (130-400) K/uL BMP 04/18/20 06:54 Sodium 137 Potassium 4.0 Chloride 104 Carbon Dioxide 26 BUN 27 H Creatinine 1.01 Glucose 111 H Calcium 10.3 H
[2020-04-18] MEDS ORDERED: SODIUM CHLORIDE 0.9% 1000ML 1,000 ML IV ONE (13:51)
[2020-04-18] MEDS: MONTELUKAST SODIUM 10 MG TABLET PO SCH (20:30)
[2020-04-19] MEDS: AZELASTINE~ORDER AWAITING ACTION SCH ×4 (01:07→23:22)
[2020-04-19] MEDS: LEVOTHYROXINE SODIUM 50 MCG TABLET PO SCH (05:54)
[2020-04-19] MEDS: FLUTICASONE FUROATE 200MCG 14 PUFFS/INHALER INH SCH (08:26)
[2020-04-19] MEDS: PANTOprazole 40 MG TAB PO SCH (08:26)
[2020-04-19] MEDS: SERTRALINE HCL 50 MG TABLET PO SCH (08:26)
[2020-04-19] MEDS: DOXYCYCLINE HYCLATE 100 MG CAP PO SCH ×2 (08:26→20:19)
[2020-04-19] MEDS: LORATADINE 10 MG TAB PO SCH (08:27)
[2020-04-19] MEDS: RIVAROXABAN 20 MG TAB PO SCH (08:27)
[2020-04-19] MEDS: METOPROLOL TARTRATE 25 MG TAB PO SCH ×2 (08:27→20:18)
[2020-04-19] MEDS: methylPREDNISolone 40 MG in SYRINGE 0 ML IV SCH (08:27)
[2020-04-19] MEDS: FLUTICASONE PROPIONATE NA SPR 16 GM BTL SCH (08:28)
[2020-04-19 08:45] LABS: BUN Creatinine Ratio 37.1 (10-20); Calcium 9.9 mg/dl (8.5-10.1); Creatinine Clr Calc Pharmacy 54.8 ml/min; Est GFR (African American) 65.4; Est GFR (Non-African American) 56.4; Potassium 3.9 mmol/L (3.5-5.1)
--- NOTE | 2020-04-19 13:06 | Pulmonology Progress Note ---
Date of Service April 19, 2020 Assessment & Plan (1) Acute hypoxemic respiratory failure: Chest x-ray 04/14/2020: Good inspiratory effort, bilateral costophrenic and cardiophrenic angles are clean, no clear infiltrate appreciated --Acute on chronic hypoxic respiratory failure Likely secondary to bronchitis on top of asthma Continue with steroids Continue with antibiotics for total of 5 days Continue with montelukast --Questionable history of sarcoidosis Patient never had any biopsy done or bronchoscopy done. CTA chest which was done in 2018 did not show any pulmonary involvement leading to was thinking about sarcoidosis Patient does have elevated calcium but her PTH is 150. This is primary hyperparathyroidism. Lymphopenia is likely from chronic steroid use I would not treat the patient as if the patient has sarcoid for the time being. Even if the patient had sarcoidosis it will be stage I, given the hypercalcemia secondary to hyperparathyroidism. Stage I sarcoidosis does not need to be treated. Defer management of hypercalcemia to the primary team Patient can have a dedicated CT chest without contrast nonemergent as an outpatient. --WOLF Patient is compliant with CPAP at home Continue with BiPAP while in the hospital nightly Plan: Start tapering steroids as of tomorrow 40 mg for 4 days and 20 mg for 3 days and then stop. Continue with antibiotics for total of 5 days. Continue with montelukast Recommend discharging the patient on Breo(laba/ICS) instead of Pulmicort. Pulmo nary follow-up as outpatient. (2) Shortness of breath: (3) Sleep apnea: (4) A-fib: Admission and Anticipated Discharge Date Admission Date: April 14, 2020 Subjective Patient seen and examined at bedside. No acute distress, no adverse events overnight. Patient states she is breathing better. Shortness of breath is improved. Coughing less. Denies any chest pain. Good appetite. No nausea or vomiting. Patient did use her CPAP overnight. Patient was saturating 93% on room air with heart rate of 63 at rest at the time of examination. Review of Systems Review of Systems: All systems reviewed & are unremarkable except as noted in HPI & below Physical Exam Physical Exam: Constitutional: No acute distress HEENT: EOMI, PERRLA Respiratory system: Decreased air entry bilaterally, minimal bilateral lower lobe crackles (improved from yesterday), no wheeze, no rhonchi CVS: S1-S2 positive, no murmurs or gallops Abdomen: Soft, nontender, nondistended, positive bowel sounds x4 Extremities: +2 pulses bilaterally radialis/ dorsalis pedis, no cyanosis, no edema, patient has nevi all over the body. Neuro: Awake alert oriented x3 Psych: Normal mood and affect Patient was saturating 97% on room air at the time of examination at rest. Skin: no rashes, warm and dry Lymphatic: no cervical or axillary lymphadenopathy Results & Data Results & Data ([facility]) Vital Signs (Past 12 Hours) Vital Signs Temp Pulse Pulse Resp BP Pulse Ox 04/19/20 07:39 36.3 C L 53 L 16 126/69 94 04/19/20 07:04 56 L 04/19/20 02:59 56 L 19 93 04/19/20 02:55 36.5 C 56 L 18 149/78 H 93 04/19/20 01:07 63 04/18/20 06:54 04/19/20 08:06 PG Care Time/CCT Total # of Minutes Spent Total Time Spent with Patient: Total time spent is greater than 50% in c oordination of care (as documented) at patient's floor/unit and/or counseling patient: Coding Level of Care Code 87180 Subseq Hosp Care Lvl 3 Diagnoses Acute hypoxemic respiratory failure J96.01 Shortness of breath R06.02 Sleep apnea G47.30 A-fib I48.91
--- NOTE | 2020-04-19 14:05 | Hospitalist Progress Note ---
Date of Service April 19, 2020 Assessment & Plan (1) Acute hypoxemic respiratory failure: Acute on chronic hypoxic respiratory failure Chronic oxygen dependency: 2 L at bedtime with CPAP Complicated bronchitis H/O Extrinsic asthma, sarcoidosis, elevated IgE levels, allergic rhinitis Follows with [facility] pulmonology CXR:No significant change compared to the prior study. No acute process. Recently completed prednisone taper course On chronic prednisone therapy Blood cultures:No growth to date Sputum Cx: no growth No significant wheezing on exam Normal lactate levels Continue doxycycline Day #5/5 Continue Solumedrol 40mg daily Continue diuretic Continue Singulair, home inhalers, duo nebs PRN Appreciate Pulmonology Input 2 step ordered today Continue supplemental oxygen at bedtime (baseline) Continue CPAP at bedtime To complete antibiotic course today Plan to start on p.o. prednisone 40 mg daily for 4 days and then transition to 20 mg daily for 3 days and stop Needs outpatient pulmonology follow-up, PFTs. Needs CT chest done as outpatient. Hypercalcemia Elevated PTH Primary Hyperparathyroidism CAYDEN, Vit D levels, PTHRP levels pending Discussed with Nephrology today May need ENT eval as outpatient for possible parathyroidectomy Monitor calcium levels Conservative management for now Avoid calcium, vitamin D supplement Hypokalemia Replete electrolytes as needed Resolved Prediabetes Likely secondary to steroids HbA1c: 6.0 Monitor blood glucose levels Chronic diastolic heart failure (EF 55%, TTE 2019) No signs of exacerbation Continue home diuretics Chronic atrial fibrillation/A.flutter Currently in sinus Continue metoprolol 25 mg twice daily On Xarelto for anticoagulation HTN stable Continue current medications Hypothyroidism Continue levothyroxine H/O DVT on Xarelto Anxiety/mood disorder monitor for now DVT px: Xarelto Code Status Full code Disposition Expected discharge home when medically stable Admission and Anticipated Discharge Date Admission Date: April 14, 2020 Subjective Patient is seen and examined at bedside States feeling much better today. Dyspnea, cough much improved No new complaints Denies chest pain, hemoptysis, dizziness, nausea, abdominal pain Plan to taper to PO steroids tomorrow Calcium levels better today Discussed with Nephrology Review of Systems Review of Systems: All systems reviewed & are unremarkable except as noted in HPI & below Physical Exam Physical Exam: Physical Exam: Vitals signs as noted above General Appearance:Obese, no apparent distress Head: normocephalic, Atraumatic Eyes: normal inspection, EOMI Neck: supple, Trachea midline Respiratory/Chest: Normal breath sounds, mild basal crackles, No accessory muscle use Cardiovascular: S1, S2, No murmur Abdomen/GI:Soft, Non tender, Bowel sounds present Extremities/Musculoskelatal:normal inspection, Trace edema Neurologic/Psych:AAOX3, grossly no focal neurological deficits Skin: normal color, warm Results & Data Results & Data ([facility]) Vital Signs (Past 12 Hours) Vital Signs Temp Pulse Pulse Pulse Pulse Pulse Resp 04/19/20 13:23 91 H 84 66 04/19/20 07:39 36.3 C L 53 L 16 04/19/20 07:04 56 L 04/19/20 02:59 56 L 19 04/19/20 02:55 36.5 C 56 L 18 Resp Resp Resp BP Pulse Ox Pulse Ox Pulse Ox 04/19/20 13:23 18 18 18 92 93 04/19/20 07:39 126/69 94 04/19/20 07:04 04/19/20 02:59 93 04/19/20 02:55 149/78 H 93 Pulse Ox 04/19/20 13:23 91 04/19/20 07:39 04/19/20 07:04 04/19/20 02:59 04/19/20 02:55 Laboratory Results BMP 04/19/20 08:06 Sodium 138 Potassium 3.9 Chloride 107 Carbon Dioxide 23 BUN 34 H Creatinine 0.93 Glucose 77 Calcium 9.9
[2020-04-19] MEDS: MONTELUKAST SODIUM 10 MG TABLET PO SCH (20:18)
[2020-04-20] MEDS: ALUMINUM/MAGNESIUM/SIMETH (MAALOX MAX) 30 ML UDC PO PRN (03:40)
[2020-04-20] MEDS: LEVOTHYROXINE SODIUM 50 MCG TABLET PO SCH (05:38)
[2020-04-20 07:29] LABS: BUN Creatinine Ratio 29.7 (10-20); Calcium 10.3 mg/dl (8.5-10.1); Creatinine Clr Calc Pharmacy 41.4 ml/min; Est GFR (African American) 46.6; Est GFR (Non-African American) 40.2; Potassium 3.9 mmol/L (3.5-5.1)
[2020-04-20] MEDS: FLUTICASONE PROPIONATE NA SPR 16 GM BTL SCH (08:35)
[2020-04-20] MEDS: FLUTICASONE FUROATE 200MCG 14 PUFFS/INHALER INH SCH (08:35)
[2020-04-20] MEDS: DOXYCYCLINE HYCLATE 100 MG CAP PO SCH ×2 (08:35→22:21)
[2020-04-20] MEDS: PANTOprazole 40 MG TAB PO SCH (08:36)
[2020-04-20] MEDS: predniSONE 20 MG TAB PO SCH (08:36)
[2020-04-20] MEDS: METOPROLOL TARTRATE 25 MG TAB PO SCH ×2 (08:36→22:20)
[2020-04-20] MEDS: RIVAROXABAN 20 MG TAB PO SCH (08:36)
[2020-04-20] MEDS: SERTRALINE HCL 50 MG TABLET PO SCH (08:36)
[2020-04-20] MEDS: LORATADINE 10 MG TAB PO SCH (08:36)
--- NOTE | 2020-04-20 08:39 | Pulmonology Progress Note ---
Date of Service April 20, 2020 Assessment & Plan (1) Acute hypoxemic respiratory failure: Chest x-ray 04/14/2020: Good inspiratory effort, bilateral costophrenic and cardiophrenic angles are clean, no clear infiltrate appreciated --Acute on chronic hypoxic respiratory failure Likely secondary to bronchitis on top of asthma Continue with steroids Continue with antibiotics for total of 5 days Continue with montelukast --Questionable history of sarcoidosis Patient never had any biopsy done or bronchoscopy done. CTA chest which was done in 2018 did not show any pulmonary involvement leading to was thinking about sarcoidosis Patient does have elevated calcium but her PTH is 150. This is primary hyperparathyroidism. Lymphopenia is likely from chronic steroid use I would not treat the patient as if the patient has sarcoid for the time being. Even if the patient had sarcoidosis it will be stage I, given the hypercalcemia secondary to hyperparathyroidism. Stage I sarcoidosis does not need to be treated. Defer management of hypercalcemia to the primary team Patient can have a dedicated CT chest without contrast nonemergent as an outpatient. --WOLF Patient is compliant with CPAP at home Continue with BiPAP while in the hospital nightly Plan: Taper steroids 40 mg for 4 days and 20 mg for 3 days and then stop. Continue with antibiotics for total of 5 days. Continue with montelukast Recommend discharging the patient on Breo(laba/ICS) instead of Pulmicort. Pulmonary follow-up as outpatient. No further recommendation from pulmonary perspective. Needs outpatient follow up. Will sign off. Recall if needed. (2) Shortness of breath: (3) Sleep apnea: (4) A-fib: Admission and Anticipated Discharge Date Admission Date: April 14, 2020 Subjective Patient seen and examined at bedside. NAD. ESTELA overnight. Feeling better. SOB has improved. No CP, No dizziness. No MARIE. Cough has decreased in intensity. Good appetite. No N or V. Review of Systems Review of Systems: All systems reviewed & are unremarkable except as noted in HPI & below Physical Exam Physical Exam: Constitutional: No acute distress HEENT: EOMI, PERRLA Respiratory system: Decreased air entry bilaterally, minimal bilateral lower lobe crackles, no wheeze, no rhonchi CVS: S1-S2 positive, no murmurs or gallops Abdomen: Soft, nontender, nondistended, positive bowel sounds x4 Extremities: +2 pulses bilaterally radialis/ dorsalis pedis, no cyanosis, no edema, patient has nevi all over the body. Neuro: Awake alert oriented x3 Psych: Normal mood and affect Patient was saturating 97% on room air with HR of 88 at the time of examination. Skin: no rashes, warm and dry Lymphatic: no cervical or axillary lymphadenopathy Results & Data Results & Data ([facility]) Vital Signs (Past 12 Hours) Vital Signs Temp Pulse Pulse Resp BP BP Pulse Ox 04/20/20 07:16 36.6 C 57 L 18 133/78 91 04/20/20 07:06 54 L 04/20/20 03:53 36.8 C 56 L 20 148/77 H 95 04/20/20 03:19 54 L 14 96 04/20/20 00:17 54 L 16 92 04/19/20 23:00 60 04/19/20 22:57 36.4 C L 59 L 18 114/72 92 04/19/20 22:45 59 L 04/18/20 06:54 04/20/20 06:38 PG Care Time/CCT Total # of Minutes Spent Total Time Spent with Patient: Total time spent is greater than 50% in coordination of care (as documented) at patient's floor/unit and/or counseling patient: Coding Level of Care Code 36070 Subseq Hosp Care Lvl 3 Diagnoses Acute hypoxemic respiratory failure J96.01 Shortness of breath R06.02 Sleep apnea G47.30 A-fib I48.91
[2020-04-20] MEDS: AZELASTINE~ORDER AWAITING ACTION SCH ×2 (10:13→15:55)
--- NOTE | 2020-04-20 15:01 | Hospitalist Progress Note ---
Date of Service April 20, 2020 Assessment & Plan (1) Acute hypoxemic respiratory failure: Acute on chronic hypoxic respiratory failure Chronic oxygen dependency: 2 L at bedtime with CPAP Complicated bronchitis with h/O Extrinsic asthma, sarcoidosis Recently completed prednisone taper course On chronic prednisone therapy Blood cultures:No growth to date Sputum Cx: no growth Continue doxycycline Day #5/5 Continue Solumedrol 40mg daily and will taper accordingly on discharge Appreciate Pulmonology Input 2 step ordered today Continue supplemental oxygen at bedtime (baseline) Continue CPAP at bedtime Plan to start on p.o. prednisone 40 mg daily for 4 days and then transition to 20 mg daily for 3 days and stop Needs outpatient pulmonology follow-up, PFTs. Needs CT chest done as outpatient. Hypercalcemia Elevated PTH Primary Hyperparathyroidism CAY[place], Vit D levels, PTHRP levels pending Discussed with Nephrology by Dr. Gramajo May need ENT eval as outpatient for possible parathyroidectomy Calcium level is 10.3 today but the patient is dehydrated We will give 2 L of normal saline infusion and repeat PRP tomorrow Hypokalemia Replete electrolytes as needed Resolved Prediabetes Likely secondary to steroids HbA1c: 6.0 Monitor blood glucose levels Chronic diastolic heart failure (EF 55%, TTE 2019) No signs of exacerbation Continue home diuretics Seems to be very dry we will give cautious amount of intravenous fluid She was advised to drink at least 1500 mL's of fluid in a day Chronic atrial fibrillation/A.flutter Currently in sinus Continue metoprolol 25 mg twice daily On Xarelto for anticoagulation HTN stable Continue current medications Hypothyroidism Continue levothyroxine H/O DVT on Xarelto Anxiety/mood disorder monitor for now DVT px: Xarelto Code Status Full code Disposition Likely discharge tomorrow Admission and Anticipated Discharge Date Admission Date: April 14, 2020 Subjective Patient was seen and examined in medical telemetry unit She complains to have weakness and dizziness on standing Her mouth is very dry but denies any significant pain and/or other symptoms at rest Review of Systems Review of Systems: All systems reviewed and are unremarkable except as noted below Constitutional: + fatigue and + weakness Gastrointestinal: no abdominal pain Physical Exam Physical Exam: Lying in bed comfortably Constitutional: well developed, well nourished and + ill appearing; no acute distress Eyes: PERRL, conjunctivae normal, anicteric sclerae ENMT: external ear and nose normal, oropharynx normal Neck: trachea midline, no thyromegaly Respiratory: normal respiratory effort; no respiratory distress Auscultation: lungs clear to auscultation bilaterally Cardiovascular: Rate/Rhythm: regular rate and regular rhythm Heart Sounds: no murmur Gastrointestinal (Abdomen): Inspection/Auscultation: abdomen normal to inspe ction; abdomen not distended Percussion/Palpation: abdomen soft; abdomen nontender Musculoskeletal: No acute arthritis involving any joints Neurologic: Alert, awake and oriented timesx3 Results & Data Results & Data ([facility]) Vital Signs (Past 12 Hours) Vital Signs Temp Pulse Pulse Resp BP BP Pulse Ox 04/20/20 11:29 36.4 C L 56 L 18 130/81 93 04/20/20 07:16 36.6 C 57 L 18 133/78 91 04/20/20 07:06 54 L 04/20/20 03:53 36.8 C 56 L 20 148/77 H 95 04/20/20 03:19 54 L 14 96 Laboratory Results BMP 04/20/20 06:38 Sodium 138 Potassium 3.9 Chloride 104 Carbon Dioxide 29 BUN 37 H Creatinine 1.23 H D Glucose 80 Calcium 10.3 H Medications Administered Current Inpatient Medications Al Hydrox/Mg Hydrox/Simethicone (Maalox Max) 15 ml PO Q6H PRN PRN Reason: Dyspepsia Stop: 05/15/20 07:45 Last Admin: 04/20/20 03:40 Dose: 15 ml Documented by: Doxycycline Hyclate (Vibramycin) 100 mg PO BID [facility] Stop: 04/22/20 08:59 Last Admin: 04/20/20 08:35 Dose: 100 mg Documented by: Fluticasone Furoate (Arnuity Ellipta 200mcg) 1 puffs INH DAILY [facility] Stop: 05/15/20 08:59 Last Admin: 04/20/20 08:35 Dose: 1 puffs Documented by: Fluticasone Propionate (Flonase) 2 sprays NA DAILY [facility] Stop: 05/15/20 08:59 Last Admin: 04/20/20 08:35 Dose: 2 sprays Documented by: Furosemide (Lasix) 20 mg PO MoFr@0900 [facility] Stop: 05/15/20 16:29 Last Admin: 04/15/20 17:15 Dose: 20 mg Documented by: Lorazepam (Ativan) 0.25 mg in 0.5 mls @ 0.5 mls/min IV Q4H PRN PRN Reason: Anxiety Stop: 05/15/20 02:18 Promethazine HCl 12.5 mg/ (Sodium Chloride) 50.5 mls @ 202 mls/hr IV Q6H PRN PRN Reason: Nausea And Vomiting Stop: 05/15/20 02:18 Sodium Chloride (Nss 1000ml) 1,000 mls @ 125 mls/hr IV .Q8H [facility] Stop: 04/21/20 04:14 Ipratropium [place] (Atrovent 0.02% 0.5mg/2.5ml) 0.5 mg INH Q6R PRN PRN Reason: Shortness Of Breath Or Wheezing Stop: 05/15/20 06:59 Levalbuterol HCl (Xopenex 1.25mg/0.5ml Neb) 1.25 mg INH Q6R PRN PRN Reason: Shortness Of Breath Or Wheezin Stop: 05/15/20 06:59 Levothyroxine Sodium (Synthroid) 50 mcg PO DAILYBB [facility] Stop: 05/15/20 06:29 Last Admin: 04/20/20 05:38 Dose: 50 mcg Documented by: Loratadine (Claritin) 10 mg PO DAILY [facility] Stop: 05/15/20 08:59 Last Admin: 04/20/20 08:36 Dose: 10 mg Documented by: Metoprolol Tartrate (Lopressor) 25 mg PO BID [facility] Stop: 05/15/20 02:18 Last Admin: 04/20/20 08:36 Dose: 25 mg Documented by: Miscellaneous (Order Awaiting Action) 1 ea N/A QS [facility] Stop: 05/15/20 07:59 Last Admin: 04/20/20 10:13 Dose: Not Given Documented by: Montelukast Sodium (Singulair) 10 mg PO HS [facility] Stop: 05/15/20 20:59 Last Admin: 04/19/20 20:18 Dose: 10 mg Documented by: Nitroglycerin (Nitrostat) 0.4 mg SL Q5M PRN PRN Reason: Chest Pain Stop: 05/15/20 12:23 Pantoprazole Sodium (Protonix) 40 mg PO DAILY [facility] Stop: 05/15/20 08:59 Last Admin: 04/20/20 08:36 Dose: 40 mg Documented by: Prednisone (Prednisone) 40 mg PO DAILY [facility] Stop: 05/20/20 08:59 Last Admin: 04/20/20 08:36 Dose: 40 mg Documented by: Rivaroxaban (Xarelto) 20 mg PO DAILY [facility] Stop: 05/15/20 02:18 Last Admin: 04/20/20 08:36 Dose: 20 mg Documented by: Sertraline HCl (Zoloft) 50 mg PO DAILY [facility] Stop: 05/15/20 08:59 Last Admin: 04/20/20 08:36 Dose: 50 mg Documented by: Tramadol HCl (Ultram) 25 mg PO Q4H PRN PRN Reason: Pain Stop: 05/15/20 02:18
[2020-04-20] MEDS: SODIUM CHLORIDE 0.9% 1000ML 1,000 ML IV SCH (15:45)
[2020-04-20] MEDS ORDERED: Nursing to Pharmacy Communication SCH (19:15)
[2020-04-20] MEDS: MONTELUKAST SODIUM 10 MG TABLET PO SCH (22:21)
[2020-04-21] MEDS: SODIUM CHLORIDE 0.9% 1000ML 1,000 ML IV SCH (00:41)
[2020-04-21] MEDS: AZELASTINE~ORDER AWAITING ACTION SCH ×2 (00:42→08:42)
[2020-04-21] MEDS: LEVOTHYROXINE SODIUM 50 MCG TABLET PO SCH (06:10)
[2020-04-21 08:39] LABS: BUN Creatinine Ratio 30.8 (10-20); Calcium 9.3 mg/dl (8.5-10.1); Creatinine Clr Calc Pharmacy 55.4 ml/min; Est GFR (African American) 66.3; Est GFR (Non-African American) 57.2; Potassium 3.6 mmol/L (3.5-5.1)
[2020-04-21] MEDS: FLUTICASONE FUROATE 200MCG 14 PUFFS/INHALER INH SCH (08:40)
[2020-04-21] MEDS: PANTOprazole 40 MG TAB PO SCH (08:41)
[2020-04-21] MEDS: SERTRALINE HCL 50 MG TABLET PO SCH (08:41)
[2020-04-21] MEDS: LORATADINE 10 MG TAB PO SCH (08:41)
[2020-04-21] MEDS: DOXYCYCLINE HYCLATE 100 MG CAP PO SCH (08:41)
[2020-04-21] MEDS: FLUTICASONE PROPIONATE NA SPR 16 GM BTL SCH (08:41)
[2020-04-21] MEDS: METOPROLOL TARTRATE 25 MG TAB PO SCH (08:41)
[2020-04-21] MEDS: predniSONE 20 MG TAB PO SCH (08:42)
[2020-04-21] MEDS: RIVAROXABAN 20 MG TAB PO SCH (08:42)
--- NOTE | 2020-04-21 13:04 | Hospitalist Progress Note ---
Date of Service April 21, 2020 Assessment & Plan (1) Acute hypoxemic respiratory failure: Acute on chronic hypoxic respiratory failure Chronic oxygen dependency: 2 L at bedtime with CPAP Complicated bronchitis with h/O Extrinsic asthma, sarcoidosis Recently completed prednisone taper course On chronic prednisone therapy Blood cultures:No growth to date Sputum Cx: no growth Continue doxycycline Day #5/5 Continue Solumedrol 40mg daily and will taper accordingly on discharge Appreciate Pulmonology Input 2 step ordered today Continue supplemental oxygen at bedtime (baseline) Continue CPAP at bedtime Plan to start on p.o. prednisone 40 mg daily for 4 days and then transition to 20 mg daily for 3 days and stop Needs outpatient pulmonology follow-up, PFTs. Needs CT chest done as outpatient. Hypercalcemia Elevated PTH Primary Hyperparathyroidism [place], Vit D levels, PTHRP levels pending Discussed with Nephrology by Dr. Gramajo May need ENT eval as outpatient for possible parathyroidectomy Calcium level is 10.3 today but the patient is dehydrated We will give 2 L of normal saline infusion and repeat PRP tomorrow Hypokalemia Replete electrolytes as needed Resolved Prediabetes Likely secondary to steroids HbA1c: 6.0 Monitor blood glucose levels Chronic diastolic heart failure (EF 55%, TTE 2019) No signs of exacerbation Continue home diuretics Seems to be very dry we will give cautious amount of intravenous fluid She was advised to drink at least 1500 mL's of fluid in a day Chronic atrial fibrillation/A.flutter Currently in sinus Continue metoprolol 25 mg twice daily On Xarelto for anticoagulation HTN stable Continue current medications Hypothyroidism Continue levothyroxine H/O DVT on Xarelto Anxiety/mood disorder monitor for now DVT px: Xarelto Code Status Full code Disposition Likely discharge tomorrow Admission and Anticipated Discharge Date Admission Date: April 14, 2020 Subjective Patient was seen and examined in medical telemetry unit She complains to have weakness and dizziness on standing Her mouth is very dry but denies any significant pain and/or other symptoms at rest 04/21/2020 The patient was seen and examined in medical floor She denies any more dizziness and she has been ambulating in the room without any symptoms She denies any chest pain, palpitation, shortness of breath, any abdominal pain nausea and or vomiting Review of Systems Review of Systems: All systems reviewed and are unremarkable except as noted below Constitutional: + weakness; no fatigue Physical Exam Physical Exam: Lying in bed comfortably Constitutional: well developed, well nourished and + ill appearing; no acute distress Eyes: PERRL, conjunctivae normal, anicteric sclerae ENMT: external ear and nose normal, oropharynx normal Neck: trachea midline, no thyromegaly Respiratory: normal respiratory effort; no respiratory distress Auscultation: lungs clear to auscultation bilaterally Cardiovascular: Rate/Rhythm: regular rate and regular rhythm Heart Sounds: no murmur Gastrointestinal (Abdomen): Inspection/Auscultation: abdomen normal to inspection; abdomen not distended Percussion/Palpation: abdomen soft; abdomen nontender Musculoskeletal: No acute arthritis involving any joints Neurologic: moves all extremities; no focal motor deficits Alert, awake and oriented x3 Results & Data Results & Data ([facility]) Vital Signs (Past 12 Hours) Vital Signs Temp Pulse Pulse Resp BP Pulse Ox 04/21/20 11:35 36.4 C L 53 L 16 123/73 94 04/21/20 07:20 36.4 C L 51 L 16 154/79 H 95 04/21/20 07:16 72 04/21/20 04:00 36.2 C L 56 L 20 149/75 H 98 04/21/20 03:14 [address] [facility] 04/21/20 07:50 Sodium 140 Potassium 3.6 Chloride 109 H Carbon Dioxide 26 BUN 28 H Creatinine 0.92 D Glucose 74 Calcium 9.3 Medications Administered Current Inpatient Medications Al Hydrox/Mg Hydrox/Simethicone (Maalox Max) 15 ml PO Q6H PRN PRN Reason: Dyspepsia Stop: 05/15/20 07:45 Last Admin: 04/20/20 03:40 Dose: 15 ml Documented by: Doxycycline Hyclate (Vibramycin) 100 mg PO BID [facility] Stop: 04/22/20 08:59 Last Admin: 04/21/20 08:41 Dose: 100 mg Documented by: Fluticasone Furoate (Arnuity Ellipta 200mcg) 1 puffs INH DAILY [facility] Stop: 05/15/20 08:59 Last Admin: 04/21/20 08:40 Dose: 1 puffs Documented by: Fluticasone Propionate (Flonase) 2 sprays NA DAILY [facility] Stop: 05/15/20 08:59 Last Admin: 04/21/20 08:41 Dose: 2 sprays Documented by: Furosemide (Lasix) 20 mg PO MoFr@0900 [facility] Stop: 05/15/20 16:29 Last Admin: 04/15/20 17:15 Dose: 20 mg Documented by: Lorazepam (Ativan) 0.25 mg in 0.5 mls @ 0.5 mls/min IV Q4H PRN PRN Reason: Anxiety Stop: 05/15/20 02:18 Promethazine HCl 12.5 mg/ (Sodium Chloride) 50.5 mls @ 202 mls/hr IV Q6H PRN PRN Reason: Nausea And Vomiting Stop: 05/15/20 02:18 Ipratropium [employer] (Atrovent 0.02% 0.5mg/2.5ml) 0.5 mg INH Q6R PRN PRN Reason: Shortness Of Breath Or Wheezing Stop: 05/15/20 06:59 Levalbuterol HCl (Xopenex 1.25mg/0.5ml Neb) 1.25 mg INH Q6R PRN PRN Reason: Shortness Of Breath Or Wheezin Stop: 05/15/20 06:59 [facility]othyroxine [facility]) [facility] Stop: 05/15/20 06:29 Last Admin: 04/21/20 06:10 Dose: 50 mcg Documented by: Loratadine (Claritin) 10 mg PO DAILY [facility] Stop: 05/15/20 08:59 Last Admin: 04/21/20 08:41 Dose: 10 mg Documented by: Metoprolol Tartrate (Lopressor) 25 mg PO BID [facility] Stop: 05/15/20 02:18 Last Admin: 04/21/20 08:41 Dose: 25 mg Documented by: Miscellaneous (Order Awaiting Action) 1 ea N/A QS [facility] Stop: 05/15/20 07:59 Last Admin: 04/21/20 08:42 Dose: Not Given Documented by: Montelukast Sodium (Singulair) 10 mg PO HS [facility] Stop: 05/15/20 20:59 Last Admin: 04/20/20 22:21 Dose: 10 mg Documented by: Nitroglycerin (Nitrostat) 0.4 mg SL Q5M PRN PRN Reason: Chest Pain Stop: 05/15/20 12:23 Pantoprazole Sodium (Protonix) 40 mg PO DAILY [facility] Stop: 05/15/20 08:59 Last Admin: 04/21/20 08:41 Dose: 40 mg Documented by: Prednisone (Prednisone) 40 mg PO DAILY [facility] Stop: 05/20/20 08:59 Last Admin: 04/21/20 08:42 Dose: 40 mg Documented by: Rivaroxaban (Xarelto) 20 mg PO DAILY [facility] Stop: 05/15/20 02:18 Last Admin: 04/21/20 08:42 Dose: 20 mg Documented by: Sertraline HCl (Zoloft) 50 mg PO DAILY [facility] Stop: 05/15/20 08:59 Last Admin: 04/21/20 08:41 Dose: 50 mg Documented by: Tramadol HCl (Ultram) 25 mg PO Q4H PRN PRN Reason: Pain Stop: 05/15/20 02:18
--- NOTE | 2020-04-21 13:15 | Hospitalist Progress Note ---
Date of Service April 21, 2020 Assessment & Plan (1) Acute hypoxemic respiratory failure: Acute on chronic hypoxic respiratory failure Chronic oxygen dependency: 2 L at bedtime with CPAP Complicated bronchitis with h/O Extrinsic asthma, sarcoidosis Recently completed prednisone taper course On chronic prednisone therapy Blood cultures:No growth to date Sputum Cx: no growth Continue doxycycline Day #5/5 Continue Solumedrol 40mg daily and will taper accordingly on discharge Appreciate Pulmonology Input 2 step saturation test has been completed Continue supplemental oxygen at bedtime (baseline) Continue CPAP at bedtime Plan to start on p.o. prednisone 40 mg daily for 4 days and then transition to 20 mg daily for 3 days and stop Needs outpatient pulmonology follow-up, PFTs. Needs CT chest done as outpatient. Hypercalcemia Elevated PTH Primary Hyperparathyroidism [place], Vit D levels, PTHRP levels pending Discussed with Nephrology by Dr. Gramajo May need ENT eval as outpatient for possible parathyroidectomy Calcium level is 10.3 today but the patient is dehydrated We will give 2 L of normal saline infusion and repeat PRP tomorrow Her creatinine is normalized and calcium level is 9.3 on 04/21/2020 She will have an outpatient appointment with ENT for hypercalcemia Hypokalemia Replete electrolytes as needed Resolved Prediabetes Likely secondary to steroids HbA1c: 6.0 Monitor blood glucose levels Chronic diastolic heart failure (EF 55%, TTE 2019) No signs of exacerbation Continue home diuretics Seems to be very dry we will give cautious amount of intravenous fluid She was advised to drink at least 1500 mL's of fluid in a day Chronic atrial fibrillation/A.flutter Currently in sinus Continue metoprolol 25 mg twice daily On Xarelto for anticoagulation HTN stable Continue current medications Hypothyroidism Continue levothyroxine H/O DVT on Xarelto Anxiety/mood disorder monitor for now DVT px: Xarelto Code Status Full code Disposition Discharge home today Admission and Anticipated Discharge Date Admission Date: April 14, 2020 Subjective Patient was seen and examined in medical telemetry unit She complains to have weakness and dizziness on standing Her mouth is very dry but denies any significant pain and/or other symptoms at rest 04/21/2020 The patient was seen and examined in medical floor She has been feeling a lot better today and denies any dizziness with ambulation She denies any other symptoms Review of Systems Review of Systems: All systems reviewed and are unremarkable except as noted below Physical Exam Physical Exam: Lying in bed comfortably Constitutional: well developed and well nourished; no acute distress and not ill appearing Eyes: PERRL, conjunctivae normal, anicteric sclerae ENMT: external ear and nose normal, oropharynx normal Neck: trachea midline, no thyromegaly Respiratory: normal respiratory effort; no respiratory distress Auscultation: lungs clear to auscultation bilaterally Cardiovascular: Rate/Rhythm: + abnormal rate and + abnormal rhythm Heart Sounds: no murmur Gastrointestinal (Abdomen): Inspection/Auscultation: abdomen normal to inspection; abdomen not distended Percussion/Palpation: abdomen soft; abdomen nontender Musculoskeletal: No acute arthritis involving any joints Neurologic: Alert, awake and oriented x3 Results & Data Results & Data ([facility]) Vital Signs (Past 12 Hours) Vital Signs Temp Pulse Pulse Resp BP Pulse Ox 04/21/20 11:35 36.4 C L 53 L 16 123/73 94 04/21/20 07:20 36.4 C L 51 L 16 154/79 H 95 04/21/20 07:16 72 04/21/20 04:00 36.2 C L 56 L 20 149/75 H 98 04/21/20 03:14 60 18 96 Laboratory Results [facility] 04/21/20 07:50 Sodium 140 Potassium 3.6 Chloride 109 H Carbon Dioxide 26 BUN 28 H Creatinine 0.92 D Glucose 74 Calcium 9.3 Medications Administered Current Inpatient Medications Al Hydrox/Mg Hydrox/Simethicone (Maalox Max) 15 ml PO Q6H PRN PRN Reason: Dyspepsia Stop: 05/15/20 07:45 Last Admin: 04/20/20 03:40 Dose: 15 ml Documented by: Doxycycline Hyclate (Vibramycin) 100 mg PO BID [facility] Stop: 04/22/20 08:59 Last Admin: 04/21/20 08:41 Dose: 100 mg Documented by: Fluticasone Furoate (Arnuity Ellipta 200mcg) 1 puffs INH DAILY [facility] Stop: 05/15/20 08:59 Last Admin: 04/21/20 08:40 Dose: 1 puffs Documented by: Fluticasone Propionate (Flonase) 2 sprays NA DAILY [facility] Stop: 05/15/20 08:59 Last Admin: 04/21/20 08:41 Dose: 2 sprays Documented by: Furosemide (Lasix) 20 mg PO MoFr@0900 [facility] Stop: 05/15/20 16:29 Last Admin: 04/15/20 17:15 Dose: 20 mg Documented by: Lorazepam (Ativan) 0.25 mg in 0.5 mls @ 0.5 mls/min IV Q4H PRN PRN Reason: Anxiety Stop: 05/15/20 02:18 Promethazine HCl 12.5 mg/ (Sodium Chloride) 50.5 mls @ 202 mls/hr IV Q6H PRN PRN Reason: Nausea And Vomiting Stop: 05/15/20 02:18 Ipratropium [place] (Atrovent 0.02% 0.5mg/2.5ml) 0.5 mg INH Q6R PRN PRN Reason: Shortness Of Breath Or Wheezing Stop: 05/15/20 06:59 Levalbuterol HCl (Xopenex 1.25mg/0.5ml Neb) 1.25 mg INH Q6R PRN PRN Reason: Shortness Of Breath Or Wheezin Stop: 05/15/20 06:59 Levothyroxine Sodium (Synthroid) 50 mcg PO DAILYBB [facility] Stop: 05/15/20 06:29 Last Admin: 04/21/20 06:10 Dose: 50 mcg Documented by: Loratadine (Claritin) 10 mg PO DAILY [facility] Stop: 05/15/20 08:59 Last Admin: 04/21/20 08:41 Dose: 10 mg Documented by: Metoprolol Tartrate (Lopressor) 25 mg PO BID [facility] Stop: 05/15/20 02:18 Last Admin: 04/21/20 08:41 Dose: 25 mg Documented by: Miscellaneous (Order Awaiting Action) 1 ea N/A QS [facility] Stop: 05/15/20 07:59 Last Admin: 04/21/20 08:42 Dose: Not Given Documented by: Montelukast Sodium (Singulair) 10 mg PO HS [facility] Stop: 05/15/20 20:59 Last Admin: 04/20/20 22:21 Dose: 10 mg Documented by: Nitroglycerin (Nitrostat) 0.4 mg SL Q5M PRN PRN Reason: Chest Pain Stop: 05/15/20 12:23 Pantoprazole Sodium (Protonix) 40 mg PO DAILY [facility] Stop: 05/15/20 08:59 Last Admin: 04/21/20 08:41 Dose: 40 mg Documented by: Prednisone (Prednisone) 40 mg PO DAILY [facility] Stop: 05/20/20 08:59 Last Admin: 04/21/20 08:42 Dose: 40 mg Documented by: Rivaroxaban (Xarelto) 20 mg PO DAILY [facility] Stop: 05/15/20 02:18 Last Admin: 04/21/20 08:42 Dose: 20 mg Documented by: Sertraline HCl (Zoloft) 50 mg PO DAILY [facility] Stop: 05/15/20 08:59 Last Admin: 04/21/20 08:41 Dose: 50 mg Documented by: Tramadol HCl (Ultram) 25 mg PO Q4H PRN PRN Reason: Pain Stop: 05/15/20 02:18
--- NOTE | 2020-04-22 07:36 | Discharge Summary ---
Date of Service April 22, 2020 Admission HPI Per Admitting Provider History obtained from patient and records. Medical history significant for chronic diastolic heart failure (EF 55%, TTE 2019), A. fib on Xarelto, HTN, hypothyroidism, past history DVT, hx PMR as per records, sarcoidosis on chronic steroid Rx, anxiety/mood disorder. This afternoon, patient noted junky cough symptoms with shortness of breath and chest tightness. Fever, chills. Denies aspiration. No recent known COVID-19 contacts although her works at a local [employer]. Patient noted to be hypoxemic at the ER, O2 sats 80s. Patient received Vancomycin and Cefepime for sepsis. Medical History as above Surgical History : Ankle surgery, cholecystostomy, partial colectomy, appendectomy, fibroid uterus tumor removal, tonsillectomy/adenoidectomy, hip replacement Family History : Diabetes, heart disease, stroke Personal/Social history : Non-smoker, no EtOH intake, retired nursing secretary, lives with Admission Exam Per Admitting Provider Physical Exam: GENERAL: Slightly uncomfortable, anxious, obese, minimal respiratory distress, looks younger than stated age SKIN: Normal color, warm HEENT: [place] palpebral conjunctivae, no ptosis, dry buccal mucosa, nasal cannula in place NECK : Supple, short neck, no tenderness CHEST : Decreased breath sounds, expiratory wheezes , no tenderness HEART : Tachycardic, no obvious murmurs ABDOMEN: Some distention, nontender EXTREMITIES : Minimal LE swelling, no LE tenderness, no other conspicuous deformities noted NEUROLOGIC : Coherent, no facial asymmetry, no other gross focality Principal Diagnosis Acute hypoxic respiratory failure secondary to complicated bronchitis, WOLF on CPAP at home, history of sarcoidosis, mild hypercalcemia, chronic A. fib on anticoagulation Discharge Exam Constitutional well developed and well nourished; no acute distress and not ill appearing Eyes PERRL, conjunctivae normal, anicteric sclerae ENMT external ear and nose normal, oropharynx normal Neck trachea midline, no thyromegaly Respiratory normal respiratory effort; no respiratory distress Auscultation: lungs clear to auscultation bilaterally Cardiovascular Rate/Rhythm: + abnormal rate and + abnormal rhythm Heart Sounds: no murmur Gastrointestinal (Abdomen) Inspection/Auscultation: abdomen normal to inspection; abdomen not distended Percussion/Palpation: abdomen soft; abdomen nontender Discharge Data Allergies Allergy/AdvReac Type Severity Reaction Status Date / Time morphine Allergy Unknown ANAPHYLAXIS Verified 03/23/20 10:27 albuterol AdvReac Severe SHAKING Verified 03/23/20 10:27 ALL OVER ipratropium AdvReac Severe SHAKING Verified 03/23/20 10:27 ALL OVER Consultations 04/14/20 22:14 ED Decision to Admit Stat 04/18/20 08:00 Consult Pulmonology Routine Hospital Course (1) Acute hypoxemic respiratory failure: Acute on chronic hypoxic respiratory failure Chronic oxygen dependency: 2 L at bedtime with CPAP Complicated bronchitis with h/O Extrinsic asthma, sarcoidosis Recently completed prednisone taper course On chronic prednisone therapy Blood cultures:No growth to date Sputum Cx: no growth Continue doxycycline Day #5 Continue Solumedrol 40mg daily and will taper accordingly on discharge Appreciate Pulmonology Input 2 step saturation test has been completed Continue supplemental oxygen at bedtime (baseline) Continue CPAP at bedtime Plan to start on p.o. prednisone 40 mg daily for 4 days and then transition to 20 mg daily for 3 days and stop Needs outpatient pulmonology follow-up, PFTs. Needs CT chest done as outpatient. Hypercalcemia Elevated PTH Primary Hyperparathyroidism CAYDEN, Vit D levels, PTHRP levels pending Discussed with Nephrology by Dr. Gramajo May need ENT eval as outpatient for possible parathyroidectomy Calcium level is 10.3 today but the patient is dehydrated We will give 2 L of normal saline infusion and repeat PRP tomorrow Her creatinine is normalized and calcium level is 9.3 on 04/21/2020 She will have an outpatient appointment with ENT for hypercalcemia Hypokalemia Replete electrolytes as needed Resolved Prediabetes Likely secondary to steroids HbA1c: 6.0 Monitor blood glucose levels Chronic diastolic heart failure (EF 55%, TTE 2019) No signs of exacerbation Continue home diuretics Seems to be very dry we will give cautious amount of intravenous fluid She was advised to drink at least 1500 mL's of fluid in a day Chronic atrial fibrillation/A.flutter Currently in sinus Continue metoprolol 25 mg twice daily On Xarelto for anticoagulation HTN stable Continue current medications Hypothyroidism Continue levothyroxine H/O DVT on Xarelto Anxiety/mood disorder monitor for now DVT px: Xarelto Code Status Full code Disposition Discharge home today Total Time Total Time Spent Total Time Spent (In Minutes): 35 minutes Total Time Includes: Examination of the Patient, Discharge Planning, Medication Reconciliation and Communication With Other Providers Discharge Plan Discharge Items Patient Disposition: Home - Self-Care Reason For Visit: SEPSIS Discharge Diagnosis: Acute hypoxic respiratory failure secondary to complicated bronchitis, WOLF on CPAP at home, history of sarcoidosis, mild hypercalcemia, chronic A. fib on anticoagulation Condition on Discharge: Fair Activity: Resume your previous activity Non-emergency contact: Primary Care Provider Call non-emergency contact if: you have any medication questions and your symptoms worsen Follow-up/Referrals: Rina Jacobson MD [Primary Care Provider] - 04/26/20 11:00 am (04/26/2020 11:00 AM Provider Rina Jacobson MD Department General Internal Medicine [facility] ) Diet: Heart Healthy Fluids: 1500ml (6 cups) Addtl Attending Provider Instructions: Please take precaution to avoid fall You will need to see an ENT specialist as an outpatient Will need to have a dedicated CT chest without contrast as an outpatient as per recommendation from [employer] seafood Pending Studies at Discharge: Yes Studies:: CAYDEN inhibitor level, parathormone level and vitamin D level Stand-Alone Forms: [employer], Smoking Cessation Medications and DC Order Prescriptions: New prednisone 20 mg Tablet 20 mg PO DAILY PRN (Reason: ud) Qty: 7 RF: 0 Arnuity Ellipta 200 mcg/actuation Blister With Device 1 inh inhalation DAILY Qty: 30 RF: 0 Continued nitroglycerin 0.4 mg tablet, sublingual 0.4 mg SL DIRECTED PRN (Reason: Chest Pain) Qty: 30 RF: 0 fluticasone propionate 50 mcg/actuation spray,suspension 2 sprays intranasal DAILY RF: 0 albuterol sulfate 90 mcg/actuation HFA aerosol inhaler 2 puffs inhalation Q4H PRN (Reason: shortness of breath or wheezing) Qty: 2 RF: 0 Xarelto 20 mg tablet 20 mg PO DAILY RF: 0 azelastine 137 mcg (0.1 %) aerosol,spray 2 spray INTNAS DAILY Qty: 30 RF: 11 loratadine 10 mg Tablet 10 mg PO DAILY RF: 0 omeprazole 20 mg capsule,delayed release(DR/EC) 20 mg PO DAILY PRN (Reason: HEARTBURN/INDIGESTION) RF: 0 levothyroxine 50 mcg Tablet 50 mcg PO DAILY RF: 0 sertraline 50 mg Tablet 50 mg PO DAILY RF: 0 metoprolol tartrate 25 mg Tablet 25 mg PO BID RF: 0 levalbuterol tartrate [Xopenex HFA] 45 mcg/actuation HFA aerosol inhaler 1 puff INHALATION Q6H PRN (Reason: Shortness Of Breath Or Wheezing) RF: 0 prednisone 5 mg Tablet 5 mg PO DAILY RF: 0 furosemide [Lasix] 20 mg Tablet 20 mg PO 2XWK RF: 0 montelukast [Singulair] 10 mg Tablet 10 mg PO HS RF: 0 Discontinued Pulmicort Flexhaler 90 mcg/actuation aerosol powdr breath activated 2 inh INHALATION BID RF: 0 Discharge Orders: Discharge Order (Routine); Ordered 04/21/20 Ordered By: Kailee Hernandez Admission Data Admit Date/Time: 04/14/20 23:34 Attending Provider: Kailee Hernandez Admit Provider: Arturo Velasquez Primary Care Provider: Rina Jacobson Other Providers: Arturo Velasquez ; Roberto Carlos Viveros ; Aneesh Gramajo Other Interventions: Discharge Summary Assessment (RN) Last Done: 04/21/20 13:56 DC Date/Time DO NOT enter until pt leaves facility: 04/21/20 15:46
[2020-04-24 00:29] LABS: Angiotensin Converting Enzyme 26 U/L (9-67); Vitamin D 1,25 42 pg/mL (18-72); Vitamin D3,1,25 42 pg/mL
--- NOTE | 2020-04-28 07:56 | Coding Query ---
To promote full compliance with coding requirements relating to patient care, provider participation is requested in all cases of counterintelligence agent uncertainty. Please assist us with the question(s) below: Coding Question(s): The diagnosis(es) below was documented in the H&P then subsequently fell off all further documentation. Please indicate if it is still a possible diagnosis or ruled out. Physician's Response(s): SEPSIS ( ) Diagnosed and POA ( ) Diagnosed and not POA ( + ) Ruled out ( ) Other (please specify) MTDD
== END 2020-04-21 15:46 | disposition home or self-care (01) | DRG 202 ==
LOC: ED 19:26 → SUATTDRO 23:34 → 2N 04-15